=== PATIENT | male | born 1955 | race Two or more races ===

== ENCOUNTER 2018-07-23 23:28 | Inpatient (IN) | payer MEDICARE, MEDICAID ==
[~2018-07-23] VITALS: Ht 162.6 cm; Wt 86.2 kg
--- NOTE | 2018-07-23 23:35 | NUR ---
PT BIBRA FROM HOME COMPLAINING OF ANXIETY X1HOUR SYSTEMS CONSULTANT. PER RA, BP WAS 88/60 AND O2 RA 93%. PT RECEIVED 100CC NS IV LEFT HAND 18G AND 2L NC EN ROUTE. PT IS AAOX3. SKIN WARM AND INTACT. NO ACUTE DISTRESS NOTED AT THIS TIME. PT PLACED ON CONTINUOUS DONOR TECHNICIAN, WILL CONTINUE TO MONITOR.
--- NOTE | 2018-07-23 23:36 | NUR ---
MD AT BEDSIDE FOR EVALUATION
--- NOTE | 2018-07-23 23:43 | NUR ---
HOG COUNTER AT BEDSIDE FOR BLOOD DRAW
--- NOTE | 2018-07-23 23:45 | NUR ---
URINE COLLECTED AND PICKED UP BY LAB
--- NOTE | 2018-07-23 23:50 | NUR ---
RADIOLOGIST AT BEDSIDE FOR CXR
[2018-07-23 23:53] LABS: BASOPHILS # (AUTO) 0.1 /CMM (0.0-0.2); BASOPHILS % (AUTO) 1.6 % (0.0-2.0); EOSINOPHILS % (AUTO) 5.1 % (0.0-6.0); HEMATOCRIT 29 % (39-51); LYMPHOCYTES # (AUTO) 0.5 /CMM (0.8-4.8); LYMPHOCYTES % (AUTO) 8.6 % (20.0-44.0); MEAN CORPUSCULAR HGB CONC 31 g/dl (31.0-36.0); MEAN CORPUSCULAR VOLUME 89 fL (80-96); MONOCYTES # (AUTO) 0.8 /CMM (0.1-1.30); NEUTROPHILS # (AUTO) 4.6 /CMM (1.8-8.9); NEUTROPHILS % (AUTO) 72.7 % (43.0-81.0); PLATELET COUNT (AUTO) 83 /CMM (150-450); RED BLOOD CELL COUNT(AUTO) 3.25 MIL/uL (4.5-6.0); WHITE BLOOD COUNT (AUTO) 6.3 K/uL (4.3-11.0)
[2018-07-24] VITALS (7 sets, daily range): BP systolic 95–104; BP diastolic 49–75
[2018-07-24 00:06] LABS: CALCIUM, SERUM 8.2 mg/dL (8.5-10.1); CARBON DIOXIDE 26 mmol/L (21-32); CHLORIDE 99 mmol/L (98-107); CREATININE 4.7 mg/dL (0.6-1.3); GLUCOSE 151 mg/dL (74-106); POTASSIUM 4.2 mmol/L (3.5-5.1); SODIUM SERUM 136 mmol/L (136-145); UREA NITROGEN, BLOOD 31 mg/dL (7-18)
[2018-07-24 00:09] LABS: APPEARANCE,URINE SL CLOUDY (CLEAR); BILIRUBIN,URINE 2+ (NEGATIVE); BLOOD, URINE NEGATIVE Ery/uL (NEGATIVE); COLOR,URINE DARK YELLO (YELLOW); KETONES,URINE 1+ (NEGATIVE); LEUKOCYTE ESTERASE ,URINE 1+ (NEGATIVE); NITRITE, URINE NEGATIVE (NEGATIVE); PROTEIN,URINE 2+ mg/dl (NEGATIVE); UGLUCOSE NEGATIVE (NEGATIVE); UROBILINOGEN,URINE 0.2 EU/dL (0.2)
[2018-07-24 00:18] LABS: ALANINE AMINOTRANSFERASE 353 U/L (12-78); ALBUMIN 3.3 g/dL (3.4-5.0); ALCOHOL, BLOOD < 3 mg/dL (0-0); ALKALINE PHOSPHATASE 142 U/L (46-116); ASPARTATE AMINOTRANSFERASE 200 U/L (15-37); B-TYPE NATRIURETIC PEPTIDE 9622 PG/ML (0-125); BILIRUBIN,DIRECT 0.5 mg/dL (0.0-0.2); BILIRUBIN,TOTAL 1.2 mg/dL (0.2-1.0); TOTAL PROTEIN, SERUM 6.8 g/dL (6.4-8.2)
[2018-07-24 00:19] LABS: ACETAMINOPHEN 0 ug/ml (10-30); SALICYLATE < 0.2 mg/dL (2.8-20.0)
[2018-07-24 00:21] LABS: BACTERIA,URINE Few /HPF (None Seen); SQUAMOUS EPITHELIAL CELL,UR Few /HPF (None Seen)
[2018-07-24 00:22] LABS: HYALINE CASTS, URINE Moderate /LPF (None Seen); MUCUS,URINE Few /LPF (None Seen); URINE AMORPHOUS URATE Few /HPF (None Seen)
[2018-07-24] MEDS ORDERED: CEFTRIAXONE 1GM BAG (ER ONLY) 50 ML IV ONE (00:28)
[2018-07-24] MEDS ORDERED: CEFTRIAXONE 1GM BAG (ER ONLY) 1 GM/50 ML PIGGYBACK IV ONE (00:30)
[2018-07-24 01:12] LABS: EOSINOPHILS % (MANUAL) 4 % (0-4); LYMPHOCYTES % (MANUAL) 9 % (16-48); MONOCYTES % (MANUAL) 11 % (0-11.0); NEUTROPHILS % (MANUAL) 76 (42-76)
[2018-07-24] MEDS ORDERED: NITROGLYCERIN 0.4 MG/TAB BOTTLE SL PRN (01:30)
--- NOTE | 2018-07-24 01:36 | NUR ---
GAVE REPORT TO YUNIER TEJEDA FOR DARREN
--- NOTE | 2018-07-24 01:54 | NUR ---
TRANSFERRED PT PER ACLS PROTOCOL
--- NOTE | 2018-07-24 01:55 | NUR ---
TRAIN STARTERMAINTENANCE CRAFTSMAN NOTES Patient came to unit via russrabbi. Alert, oriented x 4, slovak speaking, understands and speaks a little bit of bulgarian, CASSY Pacheco present to translate. Patient on O2 at 2L via NC. Patient is short of breath on exertion. Denies any chest pain and nausea. IV site on L hand g#18, intact and patent, no signs of swelling or infiltration, S/L. 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 Patient reports having a pacemaker. Patient has HD catheter on upper R chest wall. He stated that he has hemodialysis 4/week (M,W,,F) at [facility] [place] on [address]. As per patient, he has had flu vaccine and pnemo vac Jun, 2018. Patient also reports using a CPAP at home when he sleeps, with the settings of 17. HOP STRAINER Rupa made aware and asked if an order can be made as per patient's request. As per FELIBERTO Goode, patient needs to be evaluated by a bleach liquor maker in the morning as it's not hospital policy to allow outside CPAP machine. DANDRE Curry aware. Patient informed and patient verbalized understanding. Skin assessment done. Patient has multiple discolorations and scabs on upper and lower extremities. As per patient, the ones on his arms are from the IV insertion. He said that he was admitted in [facility] last week for SOB. Pictures attached to chart. Patient states that he is currently taking medications but does not have a copy and does not remember all the names, dose and frequency of the medications that he is taking. Will have to let daughterMo take the list to the hospital or call her for the list. Contact number: [phone]. Patient oriented to call riya, placed within reach. Bed in low, locked position. Will continue to monitor accordingly.
[2018-07-24] MEDS ORDERED: DEXTROSE 50%-WATER 50 ML DISP.SYRIN IV PRN (03:00)
--- NOTE | 2018-07-24 06:15 | NUR ---
MECHANICAL MAINTENANCE ENGINEER NOTES BSL checked- 68mg/dL. [place] juice given. Will monitor and recheck blood sugar.
--- NOTE | 2018-07-24 06:32 | NUR ---
TMH TEACHER NOTES Called daughterMo and asked her to bring a list of patient's medication. Patient's daughter stated she will bring it in today
[2018-07-24] MEDS: BLOOD SUGAR DIAGNOSTIC 1 EACH STRIP IN SCH ×4 (06:42→22:13)
[2018-07-24] MEDS: INSULIN REGULAR, HUMAN 100 UNIT/ML 3 ML VIAL SQ PRN ×4 (06:43→22:15)
--- NOTE | 2018-07-24 06:47 | NUR ---
CORDWOOD CUTTER HELPER CLOSING NOTES Patient sleeping in bed. On O2 at 2Lpm via NC. Not in any distress. No complaints of pain as of this time. BSL rechecked after orange juice given, 88mg/dL. Tele monitor in place, SR 63 with 1st degree AV block and V-pacing. Call ritter within reach. Bed in low, locked position. Will endorse DARREN to oncoming RN.
[2018-07-24] MEDS: CEPHALEXIN MONOHYDRATE 500 MG CAPSULE PO SCH ×2 (08:37→18:09)
[2018-07-24] MEDS: FUROSEMIDE 40 MG/4 ML VIAL IV SCH ×2 (08:39→18:09)
--- NOTE | 2018-07-24 08:40 | NUR ---
ENGINEER EXHAUSTER INITIAL NOTES Patient is awake, sitting up in the bed. Had breakfast with fair appetite. Sinus rhythm V Pacing in the monitor, oxygen sat 99% on 2L/min via NC. HD cath in right chest wall, dressing in place, no bleeding noted. On fluid restriction, patient is aware. Will cont to monitor.
[2018-07-24] MEDS ORDERED: ENOXAPARIN SODIUM 40 MG/0.4 ML DISP.SYRIN SQ SCH (09:00)
[2018-07-24 10:22] LABS: BASOPHILS # (AUTO) 0.1 /CMM (0.0-0.2); BASOPHILS % (AUTO) 1.1 % (0.0-2.0); EOSINOPHILS % (AUTO) 4.6 % (0.0-6.0); HEMATOCRIT 29 % (39-51); HEMOGLOBIN 9.2 g/dL (13.5-17.5); LYMPHOCYTES # (AUTO) 0.6 /CMM (0.8-4.8); LYMPHOCYTES % (AUTO) 8.2 % (20.0-44.0); MEAN CORPUSCULAR HGB CONC 32 g/dl (31.0-36.0); MEAN CORPUSCULAR VOLUME 88 fL (80-96); MONOCYTES # (AUTO) 0.7 /CMM (0.1-1.30); MONOCYTES % (AUTO) 10.1 % (2.0-12.0); NEUTROPHILS # (AUTO) 5.6 /CMM (1.8-8.9); PLATELET COUNT (AUTO) 83 /CMM (150-450); RED BLOOD CELL COUNT(AUTO) 3.28 MIL/uL (4.5-6.0); WHITE BLOOD COUNT (AUTO) 7.3 K/uL (4.3-11.0)
[2018-07-24 10:34] LABS: CALCIUM, SERUM 8.5 mg/dL (8.5-10.1)
[2018-07-24 10:37] LABS: ALBUMIN 3.3 g/dL (3.4-5.0); BILIRUBIN,TOTAL 1.1 mg/dL (0.2-1.0); TOTAL PROTEIN, SERUM 6.7 g/dL (6.4-8.2)
[2018-07-24 10:38] LABS: EOSINOPHILS % (MANUAL) 5 % (0-4); LYMPHOCYTES % (MANUAL) 3 % (16-48); MONOCYTES % (MANUAL) 7 % (0-11.0); NEUTROPHILS % (MANUAL) 85 (42-76)
[2018-07-24 11:41] LABS: FERRITIN 159 ng/mL (8-388)
[2018-07-24 12:28] LABS: IRON, SERUM 28 ug/dl (50-175); TOTAL IRON BINDING CAPACITY 250 ug/dl (250-450)
[2018-07-24] MEDS: FERROUS SULFATE (325 MG) 325 MG/TAB TABLET PO SCH ×2 (13:20→18:09)
[2018-07-24] MEDS: PANTOPRAZOLE 40 MG TABLET.DR PO SCH (13:20)
[2018-07-24] MEDS: HEPARIN SODIUM, PORCINE 5000 UNITS/1 ML VIAL SQ SCH ×2 (13:24→21:00)
--- NOTE | 2018-07-24 15:14 | NUR ---
UNABLE TO UPDATE MED RECON AT THIS TIME. PATIENT UNABLE TO PROVIDE INFORMATION RE: HOME MEDICATION, PHARMACY OR PCP. CALLED MARK-DAUGHTER WAITING FOR CALL BACK. PRIMARY NURSE AWARE.
--- NOTE | 2018-07-24 18:18 | NUR ---
MS RN CLOSING NOTES Patient is on 1L/day fluid restriction, had HD today, 3L fluid output, tolerating well, Accu check ACHS with insulin sliding scale, PM dose 2 units insulin regular non administered-patient prefers not to eat at this time. CPAP may use for napping and at bedtime sleep per pulmo. Home medication pending, unable to reach family to provide list of home medication. MD is aware. Will endorse to oncoming RN.
--- NOTE | 2018-07-24 19:35 | NUR ---
RN INITIAL NOTES: RECEIVED REPORT FROM THONG TEJEDA, PT S/P HD TODAY WITH 3L OUTPUT. PT RESTING IN BED, A/O X3 KOREAN SPEAKING ONLY, WITH ORDERS TO OKAY TO USE OWN CPAP/BIPAP PER PULMO DURING NAPPING AND SLEEPING. LEFT CW PACEMAKER NOTED, RCW HD CATHETER IN PLACED DRESSING C/D/I, NO ACTIVE BLEEDING NOTED. IV ACCESS PATENT AND FLUSHING WELL, ON HL. NO S/S OF INFILTRATION NOTED. SAFETY PRECAUTIONS FOR FALL INITIATED, CALL LIGHT IN REACH, WILL CONTINUE MONITORING PT.
--- NOTE | 2018-07-24 21:18 | NUR ---
NON ADMIN OF HEPARIN: HEPARIN SCHEDULED FOR 2100, NOT ADMINISTERED AT THIS TIME, PT RECEIVED IT TODAY 07/24/18 AT 1324
--- NOTE | 2018-07-24 22:16 | NUR ---
ACCU CHECK 144: BLOOD SUGAR CHECK PERFORMED RESULT OBTAINED IS 144, 2UNITS OF INSULIN GIVEN PER SLIDING SCALE, WILL CONTINUE TO MONITOR FOR ANY S/S OF HYPOGLYCEMIA
[2018-07-25] MEDS: BLOOD SUGAR DIAGNOSTIC 1 EACH STRIP IN SCH ×4 (06:16→21:50)
[2018-07-25] MEDS: INSULIN REGULAR, HUMAN 100 UNIT/ML 3 ML VIAL SQ PRN ×3 (06:17→17:28)
--- NOTE | 2018-07-25 06:18 | NUR ---
ACCU CHECK 116: BLOOD SUGAR CHECK PERFORMED AND OBAIN RESULT OF 116, NO INSULIN GIVEN PER SLIDING SCALE.
--- NOTE | 2018-07-25 06:43 | NUR ---
rn closing notes: pt in bed, sleeping, arouses to tactile stimuli, remains on cpap, respiration even and unlabored. iv access remains patent and flushing well, on hl. vs remains stable, needs attended. will f/u regarding pt's home med list. safety precautions for fall remains engaged, call light in reach, will endorse to day rn for continuity of care.
[2018-07-25 06:59] LABS: BASOPHILS # (AUTO) 0.1 /CMM (0.0-0.2); BASOPHILS % (AUTO) 1.4 % (0.0-2.0); EOSINOPHILS % (AUTO) 7.5 % (0.0-6.0); HEMATOCRIT 30 % (39-51); HEMOGLOBIN 9.5 g/dL (13.5-17.5); LYMPHOCYTES # (AUTO) 0.7 /CMM (0.8-4.8); MEAN CORPUSCULAR HGB CONC 32 g/dl (31.0-36.0); MEAN CORPUSCULAR VOLUME 88 fL (80-96); MONOCYTES # (AUTO) 0.7 /CMM (0.1-1.30); MONOCYTES % (AUTO) 11.8 % (2.0-12.0); NEUTROPHILS % (AUTO) 67.3 % (43.0-81.0); PLATELET COUNT (AUTO) 89 /CMM (150-450); RED BLOOD CELL COUNT(AUTO) 3.44 MIL/uL (4.5-6.0)
[2018-07-25 07:05] LABS: ALBUMIN 3.2 g/dL (3.4-5.0); BILIRUBIN,TOTAL 1.1 mg/dL (0.2-1.0); CALCIUM, SERUM 8.7 mg/dL (8.5-10.1); CREATININE 5.4 mg/dL (0.6-1.3); PHOSPHORUS 4.8 mg/dL (2.5-4.9); POTASSIUM 4.4 mmol/L (3.5-5.1); TOTAL PROTEIN, SERUM 6.7 g/dL (6.4-8.2)
[2018-07-25 07:10] LABS: THYROID STIMULATING HORMONE 1.052 uIU/mL (0.358-3.74)
--- NOTE | 2018-07-25 07:42 | NUR ---
MS/RN OPENING NOTE PATIENT IN BED IN STABLE CONDITION. A/O X 3, ICELANDIC SPEAKING. NO SIGNS OF ACUTE DISTRESS. NO COMPLAIN OF PAIN OR DISCOMFORT. ON OXYGEN 2LPM VIA NC TOLERATING WELL. ORDER TO USE CPAP DURING NIGHT TIME AND WHILE TAKING NAPS. ALL NEEDS ATTENDED TO. CALL LIGHT WITHIN REACH. WILL CONTINUE TO MONITOR TO ENSURE SAFETY.
[2018-07-25 08:00] VITALS: BP 90/58
[2018-07-25 08:11] LABS: *SPE A/G RATIO 1.4 (0.7-1.7); *SPE ALBUMIN 3.7 g/dL (2.9-4.4); *SPE ALPHA-1-GLOBULIN 0.3 g/dL (0.0-0.4); *SPE ALPHA-2-GLOBULIN 0.5 g/dL (0.4-1.0); *SPE BETA GLOBULIN 0.8 g/dL (0.7-1.3); *SPE GLOBULIN, TOTAL 2.7 g/dL (2.2-3.9); *SPE M-SPIKE Not Observed g/dL (Not Observed); *SPEGAMMA GLOBULIN 1.2 g/dL (0.4-1.8)
[2018-07-25] MEDS ORDERED: NITR0.4T48 SL (08:23)
[2018-07-25] MEDS ORDERED: SEVE0.8P PO (08:23)
[2018-07-25] MEDS ORDERED: TRAZ-213 PO (08:23)
[2018-07-25] MEDS ORDERED: NPH,100V2 SQ (08:23)
[2018-07-25] MEDS ORDERED: CARV3.122 PO (08:23)
[2018-07-25] MEDS ORDERED: INSU100V9 SQ (08:23)
[2018-07-25] MEDS ORDERED: AMIO200T4 PO (08:23)
[2018-07-25] MEDS: HEPARIN SODIUM, PORCINE 5000 UNITS/1 ML VIAL SQ SCH ×2 (08:30→21:00)
--- NOTE | 2018-07-25 08:31 | NUR ---
MS/RN HEPARIN SQ HELD SECONDARY TO PLATELETS 89L. DR SIMMS AWARE AND AGREED.
[2018-07-25] MEDS: FUROSEMIDE 40 MG/4 ML VIAL IV SCH (08:39)
--- NOTE | 2018-07-25 08:40 | NUR ---
MS/RN LASIX 40MG IV PUSH HELD SECONDARY TO LOW BP, DR PAIZ MADE AWARE AND AGREED.
[2018-07-25] MEDS: CEPHALEXIN MONOHYDRATE 500 MG CAPSULE PO SCH ×2 (08:41→16:33)
[2018-07-25] MEDS: FERROUS SULFATE (325 MG) 325 MG/TAB TABLET PO SCH (08:41)
[2018-07-25] MEDS: PANTOPRAZOLE 40 MG TABLET.DR PO SCH (08:41)
[2018-07-25 09:59] LABS: BAND % (MANUAL) 1 % (0.0-5.0); EOSINOPHILS % (MANUAL) 5 % (0-4); LYMPHOCYTES % (MANUAL) 15 % (16-48); MONOCYTES % (MANUAL) 6 % (0-11.0); NEUTROPHILS % (MANUAL) 73 (42-76)
--- NOTE | 2018-07-25 10:40 | NUR ---
WOUND CARE CONSULT: PT ON DIALYSIS AT THIS TIME. PT IS INDEPENDENT WITH BED MOBILITY, AMBULATORY AND CONTINENT. MULTIPLE AREAS OF SKIN DISCOLORATION/UNEVEN PIGMENTATION NOTED IN ADMISSION PHOTOS. WILL SEE PRN.
--- NOTE | 2018-07-25 11:00 | NUR ---
MS/RN CALLED DAUGHTER TO VERIFY PATIENT'S MEDICATION. NO RESPONSE AND LEFT MESSAGE. MED RECON STILL PENDING SINCE PATIENT HAVE NOT ENOUGH INFO REGARDING HIS MEDICATION.
--- NOTE | 2018-07-25 15:00 | NUR ---
MS/RN CALLED PHARMACY AND MADE AWARE PATIENT FERLICIT WAS DUE AT 2PM AND STILL NOT DELIVERED. PER PHARM WILL PREP IT AND SEND IT UP
[2018-07-25 16:00] VITALS: BP 123/73
--- NOTE | 2018-07-25 16:00 | NUR ---
MS/RN SPOKE WITH ANNEMARIE RUSS AND MADE AWARE STILL NO FERLICIT DELIVER PER ANNEMARIE, "THERE IS NOT TECH AT THIS TIME, ONCE THE TECH COMES SHE WILL ASK THEM TO PREP IT AND DELIVER."
[2018-07-25] MEDS: SOD FERRIC GLUC 125 MG in IV NS 0.9% 100 ML IV SCH (16:16)
--- NOTE | 2018-07-25 18:38 | NUR ---
MS/RN CLOSING NOTE PATIENT IN BED IN STABLE CONDITION. A/O X 4. NO SIGNS OF ACUTE DISTRESS. NO COMPLAIN OF PAIN OR DISCOMFORT. ON OXYGEN 2LPM VIA NC TOLERATING WELL. S/P H/D TODAY 200ML FLUID REMOVED. ALL NEEDS ATTENDED TO. CALL LIGHT WITHIN REACH. WILL ENDORSE TO NEXT SHIFT FOR CONTINUITY OF CARE.
--- NOTE | 2018-07-25 19:25 | NUR ---
MS RN OPENING NOTES: RECEIVED REPORT FROM DEN TEJEDA, PT S/P HD TODAY WITH 200ML OUTPUT. PT RESTING IN BED, A/O X3 ARMENIAN SPEAKING WITH MINIMAL MONGOLIAN SPEAKING, WITH ORDERS TO OKAY TO USE OWN CPAP/BIPAP PER PULMO DURING NAPPING AND SLEEPING. LEFT CW PACEMAKER NOTED, RCW HD CATHETER IN PLACED DRESSING C/D/I, NO ACTIVE BLEEDING NOTED. IV ACCESS TO LEFT HAND,SL, INTACT PATENT. NO S/S OF INFILTRATION NOTED. AMBULATORY/STEADY. BED IN LOW LOCKED POSITION. SAFETY PRECAUTIONS IN PLACE. CALL LIGHT IN REACH, WILL CONTINUE MONITORING PT CLOSELY FOR ANY DARREN.
[2018-07-25 20:00] VITALS: BP 77/62
[2018-07-25 20:40] VITALS: BP 98/62
--- NOTE | 2018-07-25 21:51 | NUR ---
NON ADMIN OF HEPARIN DOSE: HEPARIN SCHEDULED FOR 2100, NOT ADMINISTERED AT THIS TIME, PER MD, HOLD HEPARIN DOSE TONIGHT DUE TO PLATELETS BEING LOW 89. WILL MONITOR CLOSELY.
[2018-07-26 00:57] VITALS: BP 90/59
--- NOTE | 2018-07-26 00:59 | NUR ---
MS RN NOTE PATIENT'S BP NOTED TO BE 90/59, 73, 22, 98 F, 100%, 0/10. NO DIZZINESS, NO OTHER SYMPTOMS VERBALIZED. WILL CONTINUE TO MONITOR FOR ANY DARREN.
--- NOTE | 2018-07-26 03:02 | NUR ---
MS RN NOTE INFORMED FELIBERTO SMILEY THAT PATIENT'S SBP HAS BEEN AT LOWER SIDE IN 90'S, PT IS ON HD DAILY PER NEPHROLOGY, HAS CHF, ON FLUID RESTRICTIONS. SHERICE ADVISED TO MONITOR THE PATIENT CLOSELY WITH NO NEW ORDERS AT THIS TIME, ALSO STATED THAT ITS UP TO NEPHROLOGY IF MIDODRINE COULD BE PRESCRIBED IN AM. WILL ENDORSE TO AM RN TO F/U WITH NEPHROLOGY IN AM. PT IS NOT VERBALIZING ANY SYMPTOMS AT THIS TIME. SLEEPING INTERMITTENTLY WITH CPAP ON ORDERED.
[2018-07-26] MEDS: BLOOD SUGAR DIAGNOSTIC 1 EACH STRIP IN SCH ×4 (06:32→21:27)
--- NOTE | 2018-07-26 06:37 | NUR ---
MS RN CLOSING NOTE PATIENT SLEPT WELL AT NIGHT. IN STABLE CONDITION. A/O X 4. NO SIGNS OF ACUTE DISTRESS. NO COMPLAIN OF PAIN OR DISCOMFORT. ON OXYGEN 2LPM VIA NC TOLERATING WELL. WILL HAVE HD DAILY PER DR. NAVARRETE ORDER. ON FLUID RESTRICTIONS 1 LITER/DAY PER DR. SIMMS. CPAP WAS USED BY THE PT WHILE ASLEEP. ALL NEEDS ATTENDED TO. BED IN LOW LOCKED POSITION. CALL LIGHT WITHIN REACH. WILL ENDORSE TO NEXT SHIFT FOR CONTINUITY OF CARE.
--- NOTE | 2018-07-26 07:40 | NUR ---
MS/RN OPENING NOTE PATIENT IN BED IN STABLE CONDITION. A/O X 3. NO SIGNS OF ACUTE DISTRESS. NO COMPLAIN OF PAIN OR DISCOMFORT. ON OXYGEN 2LPM VIA NC TOLERATING WELL. ALL NEEDS ATTENDED TO. CALL LIGHT WITHIN REACH. WILL CONTINUE TO MONITOR TO ENSURE SAFETY.
[2018-07-26 07:46] LABS: BASOPHILS # (AUTO) 0.1 /CMM (0.0-0.2); BASOPHILS % (AUTO) 1.3 % (0.0-2.0); EOSINOPHILS % (AUTO) 8.7 % (0.0-6.0); HEMATOCRIT 29 % (39-51); HEMOGLOBIN 9.2 g/dL (13.5-17.5); LYMPHOCYTES # (AUTO) 0.9 /CMM (0.8-4.8); LYMPHOCYTES % (AUTO) 18.2 % (20.0-44.0); MEAN CORPUSCULAR HGB CONC 32 g/dl (31.0-36.0); MEAN CORPUSCULAR VOLUME 87 fL (80-96); MONOCYTES # (AUTO) 0.6 /CMM (0.1-1.30); MONOCYTES % (AUTO) 13.3 % (2.0-12.0); NEUTROPHILS # (AUTO) 2.8 /CMM (1.8-8.9); NEUTROPHILS % (AUTO) 58.5 % (43.0-81.0); PLATELET COUNT (AUTO) 89 /CMM (150-450); RED BLOOD CELL COUNT(AUTO) 3.34 MIL/uL (4.5-6.0); WHITE BLOOD COUNT (AUTO) 4.8 K/uL (4.3-11.0)
[2018-07-26 08:00] VITALS: BP 113/74
[2018-07-26 08:09] LABS: CALCIUM, SERUM 8.6 mg/dL (8.5-10.1); CREATININE 4.4 mg/dL (0.6-1.3); MAGNESIUM 1.9 mg/dL (1.8-2.4); PHOSPHORUS 4.6 mg/dL (2.5-4.9); POTASSIUM 4.1 mmol/L (3.5-5.1)
[2018-07-26] MEDS: CEPHALEXIN MONOHYDRATE 500 MG CAPSULE PO SCH ×2 (08:27→16:42)
[2018-07-26] MEDS: HEPARIN SODIUM, PORCINE 5000 UNITS/1 ML VIAL SQ SCH ×2 (08:27→21:27)
[2018-07-26] MEDS: PANTOPRAZOLE 40 MG TABLET.DR PO SCH (08:27)
--- NOTE | 2018-07-26 08:28 | NUR ---
MS/RN HEPARIN SQ HELD SECONDARY PLATELETS 89L. AWARE.
[2018-07-26] MEDS: INSULIN REGULAR, HUMAN 100 UNIT/ML 3 ML VIAL SQ PRN ×2 (12:00→17:39)
--- NOTE | 2018-07-26 12:40 | NUR ---
MS/RN SPOKE WITH [facility] DIALYSIS NURSE REGARDING PATIENT SCHEDULE FOR DIALYSIS. PER [facility] PATIENT IS SCHEDULE TO HAVE DIALYSIS TODAY BUT MOST LIKELY WILL HAPPEN AFTER 7PM. PATIENT MADE AWARE.
[2018-07-26] MEDS: SOD FERRIC GLUC 125 MG in IV NS 0.9% 100 ML IV SCH (13:48)
[2018-07-26 16:00] VITALS: BP 89/58
[2018-07-26 16:38] VITALS: BP 96/63
--- NOTE | 2018-07-26 18:20 | NUR ---
MS/RN CLOSING NOTE PATIENT IN BED IN STABLE CONDITION. A/O X 4. NO SIGNS OF ACUTE DISTRESS. NO COMPLAIN OF PAIN OR DISCOMFORT. ALL NEEDS ATTENDED TO. CALL LIGHT WITHIN REACH. WILL ENDORSE TO NEXT SHIFT FOR CONTINUITY OF CARE.
[2018-07-26 20:00] VITALS: BP 96/71
--- NOTE | 2018-07-26 20:03 | NUR ---
hemodialysis nurse in and talked to patient that the patient,s hemodialysis will be done after another patiernt and patient is aware
--- NOTE | 2018-07-26 21:50 | NUR ---
FELIBERTO Shaffer informed about the patient platelet level and patient on is on heparin dose and clarified the order, with orders okay to give the heparin with the presnt platelt level Addendum: 07/26/18 at 2200 by KOBY GUTIERREZ RN with xcomplaints of inability to sleep well and FELIBERTO Black paged for orders,/placed on bipap but patient requested to remove the bipapa and placed on nasal cannula and tolerating well
--- NOTE | 2018-07-26 22:52 | NUR ---
still awake and sitting in the adge of the bed.FELIBERTO Black in and will inform about the patient request for a sleeping m,edication.
[2018-07-26] MEDS ORDERED: diphenhydrAMINE HCL 25 MG CAPSULE PO PRN (23:30)
--- NOTE | 2018-07-27 02:51 | NUR ---
patient is currently on his bipap with home settings and is asleep/
--- NOTE | 2018-07-27 06:40 | NUR ---
hemodialysis ongoing and tolerating the procedure. blood sugar 105mg/dl
[2018-07-27] MEDS: BLOOD SUGAR DIAGNOSTIC 1 EACH STRIP IN SCH ×4 (06:41→21:43)
--- NOTE | 2018-07-27 07:07 | NUR ---
REPORT WILI TO THE DAY SHIFT RN TO CLARIFY THE HEPARIN DOSE WITH THROMBOCYTOPENIA PLT 8.9. WITH ORDERS FORM DR HAMILTON TO WILI THE HEPARIN DOSE WITH THE PLATELET LEVEL BUT THROMBOCYTOPIA CONTRAINDICATED FOR HEPARIN . MAY POSSIBLE HAVE ALTERNATE DVT PROPHYLAXIX
--- NOTE | 2018-07-27 07:14 | NUR ---
MS/RN Patient received Patient received from machinist 2nd shift. HDX just completed, no fluid removed, vital signs throughout treatment stable. Safety measures in place, will continue to monitor and ensure safety.
[2018-07-27 08:00] VITALS: BP 96/66
[2018-07-27] MEDS: HEPARIN SODIUM, PORCINE 5000 UNITS/1 ML VIAL SQ SCH ×2 (08:02→20:37)
[2018-07-27] MEDS: CEPHALEXIN MONOHYDRATE 500 MG CAPSULE PO SCH ×2 (08:05→17:17)
[2018-07-27] MEDS: PANTOPRAZOLE 40 MG TABLET.DR PO SCH (08:05)
[2018-07-27 08:15] VITALS: BP 96/66
[2018-07-27 09:06] LABS: EOSINOPHILS % (AUTO) 5.6 % (0.0-6.0); HEMATOCRIT 30 % (39-51); HEMOGLOBIN 9.3 g/dL (13.5-17.5); LYMPHOCYTES # (AUTO) 0.9 /CMM (0.8-4.8); LYMPHOCYTES % (AUTO) 17.3 % (20.0-44.0); MEAN CORPUSCULAR HGB CONC 31 g/dl (31.0-36.0); MEAN CORPUSCULAR VOLUME 88 fL (80-96); MONOCYTES # (AUTO) 0.6 /CMM (0.1-1.30); MONOCYTES % (AUTO) 12.3 % (2.0-12.0); NEUTROPHILS # (AUTO) 3.3 /CMM (1.8-8.9); NEUTROPHILS % (AUTO) 63.8 % (43.0-81.0); PLATELET COUNT (AUTO) 95 /CMM (150-450); RED BLOOD CELL COUNT(AUTO) 3.38 MIL/uL (4.5-6.0); WHITE BLOOD COUNT (AUTO) 5.2 K/uL (4.3-11.0)
[2018-07-27 09:18] LABS: CALCIUM, SERUM 8.7 mg/dL (8.5-10.1); CREATININE 3.6 mg/dL (0.6-1.3); MAGNESIUM 1.7 mg/dL (1.8-2.4); PHOSPHORUS 3.6 mg/dL (2.5-4.9); POTASSIUM 3.7 mmol/L (3.5-5.1)
[2018-07-27 09:58] LABS: EOSINOPHILS % (MANUAL) 6 % (0-4); LYMPHOCYTES % (MANUAL) 17 % (16-48); MONOCYTES % (MANUAL) 13 % (0-11.0); NEUTROPHILS % (MANUAL) 64 (42-76)
[2018-07-27] MEDS: FLUOXETINE HCL 20 MG CAPSULE PO SCH (11:50)
--- NOTE | 2018-07-27 12:00 | NUR ---
MS/RN Blood sugar Blood sugar at noon 149, insulin coverage not administered as patient stating that he is not going to eat.
--- NOTE | 2018-07-27 12:16 | NUR ---
MS/RN New order New order from Dr Patel for prozac 20mg daily. MD asked to reconcile home medications as not done since admission.
[2018-07-27] MEDS: ALPRAZOLAM 0.25 MG TABLET PO PRN ×2 (13:57→20:05)
--- NOTE | 2018-07-27 14:03 | NUR ---
MS/RN New order New order from Dr Patel for xanax 0.25mg every six hours prn for anxiety. First dose given now.
[2018-07-27] MEDS: SOD FERRIC GLUC 125 MG in IV NS 0.9% 100 ML IV SCH (14:27)
--- NOTE | 2018-07-27 15:21 | NUR ---
MS/RN Ferrlecit Ferrlecit administered as ordered, H&H 9.11/08
[2018-07-27 16:00] VITALS: BP 96/72
[2018-07-27] MEDS: INSULIN REGULAR, HUMAN 100 UNIT/ML 3 ML VIAL SQ PRN (17:18)
--- NOTE | 2018-07-27 17:25 | NUR ---
MS/managing member eval request Patient requesting that when ready for discharge to be sent to a psychiatric facility to "deal with my anxiety". Relaid to patient that MD would be notified.
--- NOTE | 2018-07-27 18:10 | NUR ---
MS/RN End note Patient remains in stable condition. Continues to deny any pain or discomfort, does not appears short of breath. Staying within fluid restriction of 1l. All needs addressed, will endorse to shift production associate.
--- NOTE | 2018-07-27 19:15 | NUR ---
RN OPENING NOTES PT RECEIVED IN ROOM, SITTING UP ON A CHAIR AT BEDSIDE. PT NOTED TO BE ANXIOUS AND CONFIRMS FEELING ANXIOUS. NO SOB NOTED, INFORMED PT THAT XANAX WILL BE ADMINISTERED ORDERED AND PT. VERBALIZED UNDERSTANDING. PT PERFORMING RELAXATION VIA DEEP BREATHING EXERCISES WITH HELP. PLACED CALL LIGHT WITHIN EASY REACH. WILL CONTINUE TO MONITOR PT.
[2018-07-27 19:52] VITALS: BP 94/68
[2018-07-27] MEDS ORDERED: ACETAMINOPHEN 325 MG TABLET PO PRN (21:00)
--- NOTE | 2018-07-27 21:00 | NUR ---
RN NOTES PATIENT WITH C/O BILATERAL LOWER EXTREMITY MUSCLE CRAMPING AND HEADACHE, PT DENIES CHEST PAIN, NO C/O WEAKNESS AND NO DIZZINESS, NO SOB. RELAYED TO FELIBERTO HAMILTON. FORECLOSURE SPECIALIST WITH NEW ORDER FOR TYLENOL. ENCOURAGED PT TO AMBULATE TO HELP WITH CRAMPING. PT COMPLIANT. WILL CONTINUE TO MONITOR.
[2018-07-27] MEDS: TRAZODONE 50 MG TABLET PO SCH (21:06)
--- NOTE | 2018-07-28 06:50 | NUR ---
RN CLOSING NOTES PATIENT IS ALERT AND ORIENTED X 4, SLEPT INTERMITTENTLY DURING THIS SHIFT. COMPLIANT WITH USE OF BIPAP. ALL PATIENT'S NEEDS ATTENDED TO. ENCOURAGED TO AMBULATE TO RELIEVE MUSCLE CRAMPS. COMPLIANT AND WITH HELP. ALL PATIENT'S NEEDS ATTENDED TO, CALL LIGHT WITHIN REACH. WILL ENDORSE TO AM SHIFT NURSE FOR CONTINUITY OF CARE.
--- NOTE | 2018-07-28 07:15 | NUR ---
MS ILEANA OPENING NOTE RECEIVED PATIENT IN BED. ALERT ORIENTED X2-3. ON ROOM AIR, TOLERATING WELL. IN NO APPARENT DISTRESS OR DISCOMFORT AT THIS TIME. RESPIRATIONS EVEN AND UNLABORED. DENIES PAIN AND SOB. PATIENT IS ABLE TO COMMUNICATE NEEDS. IS INCONTINENT WITH USE OF DIAPER. RIGHT FOREARM 22G IVC WITH FLUIDS RUNNING AT 50ML/HR. PATIENTS EXTREMITIES ELEVATED AT THIS TIME. PER PILL MACHINE OPERATOR RN PATIENT HAS BEEN HAVING DECREASED BP IN 90S/50'S. PATIENT KEPT CLEAN AND COMFORTABLE. ALL NEEDS ATTENDED, SAFETY MEASURE IN PLACE, BED IN LOW LOCKED POSITION, SIDE RAILS UP X2, CALL LIGHT WITHIN EASY REACH. WILL CONTINUE TO MONITOR. Addendum: 07/28/18 at 0817 by LUIGI BAIRES RN NOTE IS FOR A DIFFERENT PATIENT.
--- NOTE | 2018-07-28 07:17 | NUR ---
MS RN OPENING NOTE RECEIVED PATIENT IN BED. SLEEPING, EASILY AROUSED WITH VERBAL STIMULI. ORIENTED X3. ON CPAP MACHINE SETTINGS PER ORDER, TOLERATING WELL. IN NO APPARENT DISTRESS OR DISCOMFORT AT THIS TIME. RESPIRATIONS EVEN AND UNLABORED. DENIES PAIN AND SOB. PATIENT IS ALBANIAN SPEAKING, ABLE TO COMMUNICATE NEEDS WITH A LITTLE ITALIAN. PATIENT WITH L HAND 18G IVC SL. LEFT CHEST WALL PACEMAKER, RIGHT CHEST WALL HD CATHETER, INTACT. PATIENT KEPT CLEAN AND COMFORTABLE. ALL NEEDS ATTENDED, SAFETY MEASURES IN PLACE, BED IN LOW LOCKED POSITION SIDE RAILS UP X2, CALL LIGHT WITHIN EASY REACH. WILL CONTINUE TO MONITOR.
[2018-07-28 07:26] LABS: BASOPHILS # (AUTO) 0.1 /CMM (0.0-0.2); BASOPHILS % (AUTO) 1.2 % (0.0-2.0); EOSINOPHILS % (AUTO) 6.4 % (0.0-6.0); HEMATOCRIT 29 % (39-51); HEMOGLOBIN 9.1 g/dL (13.5-17.5); LYMPHOCYTES # (AUTO) 0.8 /CMM (0.8-4.8); LYMPHOCYTES % (AUTO) 17.3 % (20.0-44.0); MEAN CORPUSCULAR HGB CONC 31 g/dl (31.0-36.0); MEAN CORPUSCULAR VOLUME 88 fL (80-96); MONOCYTES # (AUTO) 0.6 /CMM (0.1-1.30); MONOCYTES % (AUTO) 12.3 % (2.0-12.0); NEUTROPHILS # (AUTO) 3.1 /CMM (1.8-8.9); NEUTROPHILS % (AUTO) 62.8 % (43.0-81.0); PLATELET COUNT (AUTO) 97 /CMM (150-450); WHITE BLOOD COUNT (AUTO) 4.9 K/uL (4.3-11.0)
[2018-07-28] MEDS ORDERED: FLUO20CA36 PO (07:54)
[2018-07-28 07:57] LABS: CREATININE 4.5 mg/dL (0.6-1.3); MAGNESIUM 1.7 mg/dL (1.8-2.4); PHOSPHORUS 4.9 mg/dL (2.5-4.9); POTASSIUM 4.4 mmol/L (3.5-5.1)
[2018-07-28 08:08] VITALS: BP 108/81
[2018-07-28] MEDS ORDERED: INSULIN REGULAR, HUMAN 100 UNIT/ML 10 ML VIAL SQ SCH (09:00)
[2018-07-28] MEDS ORDERED: NITROGLYCERIN 0.4 MG/TAB BOTTLE SL PRN (09:00)
[2018-07-28] MEDS ORDERED: FLUOXETINE HCL 20 MG CAPSULE PO SCH (09:00)
[2018-07-28] MEDS: HEPARIN SODIUM, PORCINE 5000 UNITS/1 ML VIAL SQ SCH ×2 (09:00→21:46)
[2018-07-28] MEDS: AMIODARONE HCL 200 MG TABLET PO SCH (09:04)
[2018-07-28] MEDS: PANTOPRAZOLE 40 MG TABLET.DR PO SCH (09:04)
[2018-07-28] MEDS: CEPHALEXIN MONOHYDRATE 500 MG CAPSULE PO SCH (09:04)
[2018-07-28] MEDS: FLUOXETINE HCL 20 MG CAPSULE PO SCH (09:04)
[2018-07-28] MEDS: CARVEDILOL 3.125 MG TABLET PO SCH ×2 (09:04→17:00)
[2018-07-28] MEDS: BLOOD SUGAR DIAGNOSTIC 1 EACH STRIP IN SCH ×4 (09:05→22:09)
[2018-07-28] MEDS: SEVELAMER CARBONATE 800 MG TABLET PO SCH ×3 (09:10→17:21)
[2018-07-28 09:25] VITALS: BP 108/81
--- NOTE | 2018-07-28 10:55 | NUR ---
PATIENT REPORTS BEING DEPRESSED. CURRENTLY DENIES SUICIDAL IDEATIONS BUT SAYS HE WANTS TO GO TO PSYCHIATRIC FACILITY OTHERWISE IF HE GOES HOME SE WILL START HAVING SUICIDAL THOUGHTS AGAIN. ASKED THE PATIENT TO NOTIFY IF HE STARTS HAVING SUICIDAL THOUGHT. PATIENT AGREED. DR. SIMMS MADE AWARE. PSYCH CONSULT REQUESTED. CM AWARE. WILL CONTINUE TO MONITOR AT THIS TIME.
[2018-07-28] MEDS: INSULIN REGULAR, HUMAN 100 UNIT/ML 3 ML VIAL SQ PRN (13:18)
[2018-07-28] MEDS: SOD FERRIC GLUC 125 MG in IV NS 0.9% 100 ML IV SCH (14:44)
[2018-07-28 16:03] VITALS: BP 102/51
[2018-07-28] MEDS ORDERED: AZITHROMYCIN 500 MG in IV D5W 250 ML IV SCH (17:00)
--- NOTE | 2018-07-28 17:00 | NUR ---
LAURENT NURSE AT BEDSIDE. PATIENT IS BEING DIALYZED AT THIS TIME. WILL CONTINUE TO MONITOR. Addendum: 07/28/18 at 1831 by LUIGI BAIRES RN HD
[2018-07-28] MEDS: AMPICILLIN 1 GM in IV NS 0.9% 50 ML IV SCH (17:21)
--- NOTE | 2018-07-28 18:31 | NUR ---
MS RN CLOSING NOTE PATIENT IN BED. ALERT ORIENTED X4. ON ROOM AIR, TOLERATING WELL. IN NO APPARENT DISTRESS OR DISCOMFORT AT THIS TIME. RESPIRATIONS EVEN AND UNLABORED. DENIES PAIN AND SOB. PATIENT IS SIERRA LEONEAN SPEAKING, ABLE TO COMMUNICATE NEEDS WITH A LITTLE WOLOF. PATIENT WITH L FA 20G IVC SL. LEFT CHEST WALL PACEMAKER, RIGHT CHEST WALL HD CATHETER, INTACT AND PATENT. PATIENT DENIES SUICIDAL IDEATIONS AT THIS TIME. PATIENT KEPT CLEAN AND COMFORTABLE. ALL NEEDS ATTENDED, SAFETY MEASURES IN PLACE, BED IN LOW LOCKED POSITION SIDE RAILS UP X2, CALL LIGHT WITHIN EASY REACH. WILL ENDORSE TO PM NURSE FOR DARREN.
--- NOTE | 2018-07-28 19:20 | NUR ---
RN OPENING NOTES RECEIVED PT IN BED, ASLEEP BUT EASILY AROUSABLE, VERBALLY RESPONSIVE, IN NO ACUTE DISTRESS AND DENIES PAIN. ALL PATIENT'S NEEDS ATTENDED TO AT THIS TIME. PLACED BED IN LOW POSITION AND LOCKED IN PLACE. CALL LIGHT WITHIN EASY REACH.
[2018-07-28 20:00] VITALS: BP 102/69
[2018-07-28] MEDS: TRAZODONE 50 MG TABLET PO SCH (21:45)
[2018-07-28] MEDS ORDERED: TRAZODONE 50 MG TABLET PO SCH (22:00)
[2018-07-29] MEDS: AMPICILLIN 1 GM in IV NS 0.9% 50 ML IV SCH (05:14)
--- NOTE | 2018-07-29 06:28 | NUR ---
RN CLOSING NOTES PATIENT SLEPT WELL THROUGHOUT THIS SHIFT, COMPLIANT WITH USE OF BIPAP. NOTED WITH NO EPISODE OF ANXIETY. NO SOB, BREATHING EVEN AND UNLABORED AND IN NO DISTRESS. ALL PATIENT'S NEEDS ATTENDED TO, LOCKED BED IN LOW POSITION, PLACED CALL LIGHT WITHIN EASY REACH. WILL ENDORSE TO AM SHIFT NURSE FOR CONTINUITY OF CARE.
[2018-07-29] MEDS: BLOOD SUGAR DIAGNOSTIC 1 EACH STRIP IN SCH ×2 (07:07→11:59)
[2018-07-29 07:09] LABS: BASOPHILS # (AUTO) 0.1 /CMM (0.0-0.2); BASOPHILS % (AUTO) 1.3 % (0.0-2.0); EOSINOPHILS % (AUTO) 6.6 % (0.0-6.0); HEMATOCRIT 31 % (39-51); HEMOGLOBIN 9.6 g/dL (13.5-17.5); LYMPHOCYTES # (AUTO) 0.9 /CMM (0.8-4.8); LYMPHOCYTES % (AUTO) 18.7 % (20.0-44.0); MEAN CORPUSCULAR HGB CONC 31 g/dl (31.0-36.0); MEAN CORPUSCULAR VOLUME 89 fL (80-96); MONOCYTES # (AUTO) 0.6 /CMM (0.1-1.30); MONOCYTES % (AUTO) 11.3 % (2.0-12.0); NEUTROPHILS # (AUTO) 3.1 /CMM (1.8-8.9); NEUTROPHILS % (AUTO) 62.1 % (43.0-81.0); PLATELET COUNT (AUTO) 103 /CMM (150-450); RED BLOOD CELL COUNT(AUTO) 3.41 MIL/uL (4.5-6.0); WHITE BLOOD COUNT (AUTO) 5.1 K/uL (4.3-11.0)
--- NOTE | 2018-07-29 07:20 | NUR ---
MS RN OPENING NOTES RECEIVED PATIENT IN STABLE CONDITION. IN NO APPARENT DISTRESS. BEDSIDE RAILS ARE UPX2. BED IS LOCKED AND LOWERED. CALL LIGHT IS WITHIN REACH. IV LINE IS INTACT AND PATENT. WILL CONTINUE TO MONITOR PATIENT.
[2018-07-29 07:24] LABS: CREATININE 5.2 mg/dL (0.6-1.3); MAGNESIUM 1.9 mg/dL (1.8-2.4); POTASSIUM 4.7 mmol/L (3.5-5.1)
[2018-07-29 08:00] VITALS: BP 99/67
[2018-07-29] MEDS: PANTOPRAZOLE 40 MG TABLET.DR PO SCH (08:19)
[2018-07-29] MEDS: SEVELAMER CARBONATE 800 MG TABLET PO SCH ×2 (08:19→12:01)
[2018-07-29 08:20] VITALS: BP 99/67
[2018-07-29] MEDS: CARVEDILOL 3.125 MG TABLET PO SCH (08:20)
[2018-07-29] MEDS: AMIODARONE HCL 200 MG TABLET PO SCH (08:20)
[2018-07-29] MEDS: HEPARIN SODIUM, PORCINE 5000 UNITS/1 ML VIAL SQ SCH (08:25)
[2018-07-29] MEDS ORDERED: FLUO-119 PO (09:00)
[2018-07-29] MEDS ORDERED: Fluoxetine 10 mg capsule PO SCH (09:00)
[2018-07-29] MEDS: INSULIN REGULAR, HUMAN 100 UNIT/ML 3 ML VIAL SQ PRN (12:43)
--- NOTE | 2018-07-29 13:26 | NUR ---
MS TEJEDA CLOSING NOTES DISCHARGED PATIENT IN STABLE CONDITION. IN NO APPARENT DISTRESS. EXITCARE WAS SIGNED AND GIVEN TO THE PATIENT. IV LINE WAS REMOVED. ID BAND WAS REMOVED. PRESCRIPTIONS WERE PROVIDED TO THE PATIENT. ALL NEEDS WERE MET. PATIENT WAS ESCORTED OUT OF THE FACILITY VIA WHEELCHAIR BY CASSY JOHNSON. PATIENTS BEING DRIVEN HOME BY FAMILY. Addendum: 07/29/18 at 1327 by KATERINA EATON RN BELONGINGS WERE CHECKED AND GIVEN TO THE PATIENT.
== END 2018-07-29 13:20 | disposition home health service (06) | DRG 291 ==
LOC: ER 23:32 → TELE 07-24 01:13 → MED 07-24 10:40
PROVIDERS: ADMIT Student in an Organized Health Care Education/Training Program; ATTEND Family Medicine
PROC: 5A1D70Z Performance of Urinary Filtration, Intermittent, Less than 6 Hours Per Day (ICD-10-PCS; principal; 2018-07-24)
PROC: 5A1D70Z Performance of Urinary Filtration, Intermittent, Less than 6 Hours Per Day (ICD-10-PCS; 2018-07-25)
PROC: 5A1D70Z Performance of Urinary Filtration, Intermittent, Less than 6 Hours Per Day (ICD-10-PCS; 2018-07-27)
PROC: 5A1D70Z Performance of Urinary Filtration, Intermittent, Less than 6 Hours Per Day (ICD-10-PCS; 2018-07-28)
DX: I13.2 Hypertensive heart and chronic kidney disease with heart failure and with stage 5 chronic kidney disease, or end stage renal disease (principal); N18.6 End stage renal disease; J96.00 Acute respiratory failure, unspecified whether with hypoxia or hypercapnia; I50.23 Acute on chronic systolic (congestive) heart failure; N39.0 Urinary tract infection, site not specified; E44.1 Mild protein-calorie malnutrition; F33.2 Major depressive disorder, recurrent severe without psychotic features; F41.9 Anxiety disorder, unspecified; Z99.81 Dependence on supplemental oxygen; D69.6 Thrombocytopenia, unspecified; E11.22 Type 2 diabetes mellitus with diabetic chronic kidney disease; E66.01 Morbid (severe) obesity due to excess calories; G47.33 Obstructive sleep apnea (adult) (pediatric); D50.9 Iron deficiency anemia, unspecified; Z99.2 Dependence on renal dialysis; Z91.5 Personal history of self-harm; Z87.891 Personal history of nicotine dependence; R74.0 Nonspecific elevation of levels of transaminase and lactic acid dehydrogenase [LDH]; Z68.32 Body mass index [BMI] 32.0-32.9, adult; I08.0 Rheumatic disorders of both mitral and aortic valves; I05.2 Rheumatic mitral stenosis with insufficiency; Z95.810 Presence of automatic (implantable) cardiac defibrillator; B95.2 Enterococcus as the cause of diseases classified elsewhere; Z79.4 Long term (current) use of insulin; I25.5 Ischemic cardiomyopathy
CPT/HCPCS: 36415; 71045-TC; 80048-TC; 80053-TC; 80061-TC; 80076-TC; 80305; 81000-TC; 82728-TC; 82962-TC; 83540-TC; 83605-TC; 83735-TC; 83880; 84100-TC; 84155; 84165; 84443-TC; 84484-TC; 85025-TC; 85730-TC; 87040-TC; 87081-TC; 87086-TC; 87186-TC; 90935-TC; 93307-TC; A4216; A4606; G0378; G0480; J0290; J0456; J0696; J1644; J1650; J1815; J1940; J2916; J7030; J7050; J7060; Q0163; Z7610

== ENCOUNTER 2018-09-18 15:06 | Inpatient (IN) | payer MEDICAID, MEDICARE ==
[~2018-09-18] VITALS: Ht 165.1 cm; Wt 95.3 kg
[~2018-09-18 15:06] MED LIST: AMIO200T4 PO; CARV3.122 PO; FLUO-119 PO; INSU100V9 SQ; NITR0.4T48 SL; NPH,100V2 SQ; SEVE0.8P PO; TRAZ-213 PO
--- NOTE | 2018-09-18 15:15 | NUR ---
PT BIB DAUGHTER FROM HOME TO ER BED 05 C/O INTERMITTENT MIDSTERNAL CHEST PAIN, NON RADIATING SINCE YESTERDAY. PT STATES PAIN IS WORST 30 MINS RISK PREVENTION ENGINEER. PT IS ALSO DIALYSIS PATIENT AND HAD DIALYSIS YESTERDAY. GOWNED AND PLACED ON MONITOR. AWAITING MD BOGGS.
--- NOTE | 2018-09-18 15:20 | NUR ---
IV LINE STARTED BLOOD DRAWN AND SENT TO LAB.
--- NOTE | 2018-09-18 15:29 | NUR ---
DR NEGRETE AT BEDSIDE FOR EVAL.
[2018-09-18] MEDS ORDERED: ASPIRIN 325 MG TABLET PO ONE (15:30)
[2018-09-18] MEDS ORDERED: ASPIRIN 325 MG TABLET ONE (15:34)
[2018-09-18 15:38] LABS: BASOPHILS # (AUTO) 0.1 /CMM (0.0-0.2); BASOPHILS % (AUTO) 1.3 % (0.0-2.0); EOSINOPHILS % (AUTO) 1.4 % (0.0-6.0); HEMATOCRIT 37 % (39-51); HEMOGLOBIN 11.8 g/dL (13.5-17.5); LYMPHOCYTES # (AUTO) 0.5 /CMM (0.8-4.8); LYMPHOCYTES % (AUTO) 7.6 % (20.0-44.0); MEAN CORPUSCULAR HGB CONC 32 g/dl (31.0-36.0); MEAN CORPUSCULAR VOLUME 99 fL (80-96); MONOCYTES # (AUTO) 0.9 /CMM (0.1-1.30); MONOCYTES % (AUTO) 12.3 % (2.0-12.0); NEUTROPHILS # (AUTO) 5.6 /CMM (1.8-8.9); NEUTROPHILS % (AUTO) 77.4 % (43.0-81.0); PLATELET COUNT (AUTO) 116 /CMM (150-450); WHITE BLOOD COUNT (AUTO) 7.2 K/uL (4.3-11.0)
[2018-09-18] MEDS ORDERED: INSU100V27 SQ (15:47)
[2018-09-18] MEDS ORDERED: FLUO-119 PO (15:47)
[2018-09-18 15:56] LABS: CALCIUM, SERUM 9.2 mg/dL (8.5-10.1); POTASSIUM 5.2 mmol/L (3.5-5.1)
[2018-09-18 15:58] LABS: CREATININE 7.7 mg/dL (0.6-1.3)
--- NOTE | 2018-09-18 17:16 | NUR ---
PAGED [employer] FOR PANEL - MARKETING ANALYST DR. ALEM SALAZAR
[2018-09-18] MEDS ORDERED: HEPARIN SODIUM, PORCINE 5000 UNITS/1 ML VIAL IV ONE (19:00)
[2018-09-18] MEDS ORDERED: HEPARIN INFUSION/D5W 500 ML IV PRN (19:00)
[2018-09-18] MEDS ORDERED: HEPARIN SODIUM, PORCINE 5000 UNITS/1 ML VIAL ONE (19:21)
[2018-09-18] MEDS ORDERED: HEPARIN INFUSION/D5W 500 ML IV ONE (19:23)
[2018-09-18] MEDS ORDERED: TRAZODONE 50 MG TABLET PO PRN (19:30)
[2018-09-18] MEDS ORDERED: MAG HYDROX/AL HYDROX/SIMETH 30 ML UDC PO PRN (19:30)
[2018-09-18] MEDS ORDERED: hydrALAZINE HCL IV 20 MG VIAL IV PRN (19:30)
[2018-09-18] MEDS ORDERED: Z GUARD REMEDY 2 OZ OINT TP PRN (19:30)
[2018-09-18] MEDS ORDERED: HYDROCODONE/APAP 5/325MG 1 EACH TABLET PO PRN (19:30)
[2018-09-18] MEDS ORDERED: ONDANSETRON HCL/PF 4 MG/2 ML VIAL IVP PRN (19:30)
[2018-09-18] MEDS ORDERED: MORPHINE SULFATE INJ 2 MG/ML DISP.SYRIN IV PRN (19:30)
[2018-09-18] MEDS ORDERED: MAGNESIUM HYDROXIDE 30 ML UDC PO PRN (19:30)
--- NOTE | 2018-09-18 19:55 | NUR ---
REPORT GIVEN TO SHERICE TEJEAD. PT AWAITING TRANSFER TO FLOOR.
--- NOTE | 2018-09-18 20:00 | NUR ---
TELE/RN NOTES RECEIVED PT. FROM ER VIA GIOVANNY. PT. IS AWAKE, ALERT AND ORIENTED X3. BREATHING EVEN AND UNLABORED ON ROOM AIR. NO SOB, RESPIRATORY DISTRESS OR COMPLAINTS OF PAIN NOTED AT THIS TIME. ORIENTED PT. TO ROOM. PLACED EXTERNAL APPLIANCE TECHNICIAN ON PT. CURRENT RHYTHM = SINUS RHYTHM HR 85. PT. WITH LEFT AC 20 GAUGE PERIPHERAL IV PRESENT, PATENT AND INTACT ADMINISTERING TO PT. HEPARIN DRIP AT 1116 UNITS/HR. NO S/S OF BLEEDING NOTED. BED LOCKED AND IN LOWEST POSITION, SIDE RAILS UP X2, CALL LIGHT WITHIN REACH, WILL CONTINUE TO MONITOR.
[2018-09-18 20:10] VITALS: BP 91/52
[2018-09-18] MEDS ORDERED: HYDROMORPHONE INJ 0.5 MG/0.5 ML SYRINGE IV PRN (20:30)
[2018-09-18] MEDS ORDERED: INSULIN NPH, HUMAN ISOPHANE 100 UNIT/ML VIAL SQ SCH (21:00)
--- NOTE | 2018-09-18 21:54 | NUR ---
RESOURCE RN NOTES: ADMISSION DOCUMENTATION COMPLETED, PT WAS INTERVIEWED BY ASSIGNED RN AND MYSELF. PT IS A/O X3 GEORGIAN SPEAKING, UNDERSTAND AND SPEAK CANADIAN, GEORGIAN SPEAKING STAFF PRESENT AT BED SIDE IN CASE THERE WILL BE A NEED FOR TRANSLATION. PT WILL BE ADMITTED UNDER EPIC GROUP, ADMITTING DX NSTEMI, ESRD. PT RECEIVED BY ASSIGNED RN ON HEPARIN DRIP. AREA SECRETARY AND ASSIGNED RN NOTIFIED ER STAFF REGARDING HEPARIN DRIP COMPUTATION PAPER WORKS THIS WAS NOT INCLUDED IN THE PAPERS BROUGHT BY ER. PT'S WEIGHT OBTAINED ON THE FLOOR IS 209.9 LBS. REGARDING VACCINATION STATUS, PT CLAIMED HE RECEIVED PNEUMOCOCCAL AND FLU VACCINE, BUT UNABLE TO RECALL EXACT DATE. ASSIGNED RN TO DO/COMPLETE INITIAL PHYSICAL ASSESSMENT AND ASSUMED FULL PATIENT CARE.
[2018-09-18] MEDS: BLOOD SUGAR DIAGNOSTIC 1 EACH STRIP IN SCH (22:14)
--- NOTE | 2018-09-18 22:49 | NUR ---
TELE/RN NOTES NOTIFIED [facility] INSPECTOR ALUMINUM BOAT FELIBERTO SEGOVIA THAT PT. SECOND TROPONIN RESULTED AT 0.217, PREVIOUS TROPONIN WAS 0.199. PT. IS SINUS RHYTHM HR 91, NO COMPLAINTS OF CHEST PAIN NOTED AT THIS TIME. PER FELIBERTO SEGOVIA" PT. IS ON HEPARIN, NOT CONCERNED" NO NEW ORDERS AT THIS TIME. WILL CONTINUE TO MONITOR.
[2018-09-19] VITALS (9 sets, daily range): BP systolic 87–109; BP diastolic 58–78
--- NOTE | 2018-09-19 01:04 | NUR ---
TELE/RN NOTES PT. NOTED WITH VTACH ON EVP OF PRODUCTS & [employer] FOUNDER HR 140'S. PT. NOTED OFF BIPAP AND COMPLAINING OF MID CHEST PAIN. PLACED PT. ON O2. STAT EKG ORDERED. STAT LABS ORDERED. RT RICHELLE ARRIVED. VITAL SIGNS TAKEN. 0110 ADMINISTERED TO PT. 250ML NS BOLUS FOR SINUS TACHYCARDIA. 0115 PT. COMPLAINING OF CHEST PAIN 7/10 ADMINISTERED TO PT. FIRST DOSE OF NITROGLYCERIN ORDERED. 0120 PT. COMPLAINING OF CHEST PAIN 6/10 ADMINISTERED TO PT. SECOND DOSE NITROGLYCERIN MEDICATION ORDERED. SPOKE WITH [facility] CONTACT ACID PLANT OPERATOR FELIBERTO ONTIVEROS PER TOBACCO WAREHOUSE MANAGER NEW ORDERS: MORPHINE 2MG IVPUSH ONCE NOW. TOBACCO WAREHOUSE MANAGER NOTIFIED OF STAT EKG RESULTS STATING ACUTE MD.0125 PT. COMPLAINING OF CHEST PAIN 5/10 ADMINISTERED TO PT. ONE TIME DOSE MORPHINE 2MG IVPUSH. 0129 PT. COMPLAINING OF CHEST PAIN 5/10 ADMINISTERED TO PT. THIRD DOSE OF NITROGLYCERIN ORDERED. 0133 PT. COMPLAINING OF HEADACHE ADMINISTERED TO PT. TYLENOL 650 MG ORDERED. PER FELIBERTO ALBERTS TRANSFER PT. TO [facility] FOR CLOSE MONITORING. PT. LEFT THE FLOOR FOLLOWING ACLS PROTOCOL ACCOMPANIED BY 2 RN'S AND 1 GLAZE MIXER TO [facility] ROOM 117 IN STABLE CONDITION. REPORT GIVEN AT BEDSIDE TO ILEANA SANDERS. 0110: BP 94/65, HR 134, RR 22, T 98.0, O2 SAT 96% 0115: BP 108/76, HR 94 02 SAT 100% CHEST PAIN 02/18 0120: BP 109/73, HR 96 O2 SAT 100% CHEST PAIN 01/19 0125: BP 101/70, HR 89 O2 SAT 100% CHEST PAIN 01/19 0126 BP 104/78, HR 92 O2 SAT 100% CHEST PAIN 12/19 0129 BP 103/72, HR 92 O2 SAT 100% CHEST PAIN 10
[2018-09-19] MEDS: NITROGLYCERIN 0.4 MG/TAB BOTTLE SL PRN ×3 (01:11→01:26)
[2018-09-19] MEDS ORDERED: MORPHINE SULFATE INJ 4 MG/ML DISP.SYRIN IV STA (01:15)
--- NOTE | 2018-09-19 01:22 | NUR ---
ONE TIME DOSE MORPHINE: PER MD TO GIVE ONE TIME DOSE OF MORHINE FOR PT'S C/O CHEST PAIN PS 01/19, PRN MORPHINE 2MG IVP ADMINISTERED AT THIS TIME
[2018-09-19] MEDS: ACETAMINOPHEN 325 MG TABLET PO PRN ×2 (01:27→01:29)
--- NOTE | 2018-09-19 01:30 | NUR ---
PRN TYLENOL: ADMINISTERED TYLENOL 650 MG TAB PO FOR HEAD ACHE. WILL CONTINUE TO MONITOR AND REASSESS PT
[2018-09-19 01:34] LABS: CALCIUM, SERUM 9.2 mg/dL (8.5-10.1)
[2018-09-19 01:35] LABS: BASOPHILS # (AUTO) 0.2 /CMM (0.0-0.2); BASOPHILS % (AUTO) 2.5 % (0.0-2.0); EOSINOPHILS % (AUTO) 2.8 % (0.0-6.0); HEMATOCRIT 37 % (39-51); HEMOGLOBIN 11.8 g/dL (13.5-17.5); LYMPHOCYTES # (AUTO) 0.9 /CMM (0.8-4.8); LYMPHOCYTES % (AUTO) 13.2 % (20.0-44.0); MEAN CORPUSCULAR HGB CONC 32 g/dl (31.0-36.0); MEAN CORPUSCULAR VOLUME 99 fL (80-96); MONOCYTES # (AUTO) 0.9 /CMM (0.1-1.30); MONOCYTES % (AUTO) 12.6 % (2.0-12.0); NEUTROPHILS # (AUTO) 4.8 /CMM (1.8-8.9); NEUTROPHILS % (AUTO) 68.9 % (43.0-81.0); PLATELET COUNT (AUTO) 121 /CMM (150-450); RED BLOOD CELL COUNT(AUTO) 3.74 MIL/uL (4.5-6.0)
[2018-09-19 01:39] LABS: ALBUMIN 2.9 g/dL (3.4-5.0); BILIRUBIN,TOTAL 1.5 mg/dL (0.2-1.0); TOTAL PROTEIN, SERUM 7.6 g/dL (6.4-8.2)
[2018-09-19 01:41] LABS: POTASSIUM 5.3 mmol/L (3.5-5.1)
[2018-09-19 01:42] LABS: CREATININE 7.9 mg/dL (0.6-1.3)
--- NOTE | 2018-09-19 01:50 | NUR ---
ENRIQUE RN NOTES RECEIVED PATIENT TRANSFER FROM & REPORT GIVEN BY SHERICE TEJEDA. PATIENT CHANGED TO ENRIQUE STATUS FOR CARDIAC DISTRESS & POSITIVE FOR ACUTE CT ON EKG. OPERATIONS MANAGER ASSISTANT BEA AWARE. UPON ARRIVAL PATIENT DENIED OF ANY MORE CHEST PAIN. VSS. BP 103/73, HR 91, O2 SAT 100%, TEMP 97.6. O2 VIA NC CHANGED TO BIPAP BY RT. PATIENT TOLERATING WELL W/ NO RESPIRATORY DISTRESS NOTED. TELE MONITOR SHOWS SINUS RHYTHM. WILL CONTINUE TO MONITOR.
--- NOTE | 2018-09-19 02:36 | NUR ---
RT NOTES PLACED PT ON CPAP PER MD ORDER ON SETTING THAT PT SAID IS SIMILAR TO WHAT HE USES AT HOME. NO SOB, DISTRESS, OR ADVERSE EFFECTS NOTED. WILL CONT TO MONITOR PT FOR REST OF SHIFT. MEPILEX PLACED ON MASK. Addendum: 09/19/18 at 0239 by RICHELLE MURPHY RT Amended: Links added.
--- NOTE | 2018-09-19 03:00 | NUR ---
ENRIQUE RN NOTES PATIENT NOTED W/ VTACH ON TELE MONITOR & HR 130S @ 0255. UPON ASSESSMENT, PATIENT DENIED ANY CHEST PAIN OR DISCOMFORT. BP 104/76 & HR 80. SATING WELL @ 100% W/ BIPAP ON. PATIENT CONVERTED BACK TO SINUS RHYTHM @ 0259.
--- NOTE | 2018-09-19 03:15 | NUR ---
ENRIQUE RN NOTES NOTIFIED ADDRESSOGRAPH OPERATOR BEA OF PATIENT'S VTACH & RECEIVED NEW ORDER FOR X1 10 MG LISINOPRIL PO. INFORMED OF PATIENT'S BP OF 104/76 & PER BEA STILL OK TO GIVE.
[2018-09-19] MEDS ORDERED: LISINOPRIL (10MG) 10 MG TABLET PO ONE (03:30)
--- NOTE | 2018-09-19 06:56 | NUR ---
ENRIQUE RN NOTES NEW PTT = 49.9. PER HEPARIN PROTOCOL, NO CHANGE IN UNITS.
[2018-09-19 07:15] LABS: BASOPHILS # (AUTO) 0.2 /CMM (0.0-0.2); BASOPHILS % (AUTO) 3.3 % (0.0-2.0); EOSINOPHILS % (AUTO) 2.9 % (0.0-6.0); HEMATOCRIT 35 % (39-51); HEMOGLOBIN 11.2 g/dL (13.5-17.5); LYMPHOCYTES # (AUTO) 0.9 /CMM (0.8-4.8); LYMPHOCYTES % (AUTO) 14.5 % (20.0-44.0); MEAN CORPUSCULAR HGB CONC 33 g/dl (31.0-36.0); MEAN CORPUSCULAR VOLUME 98 fL (80-96); MONOCYTES # (AUTO) 0.8 /CMM (0.1-1.30); MONOCYTES % (AUTO) 13.2 % (2.0-12.0); NEUTROPHILS % (AUTO) 66.1 % (43.0-81.0); PLATELET COUNT (AUTO) 101 /CMM (150-450)
[2018-09-19 07:30] LABS: ALBUMIN 2.7 g/dL (3.4-5.0); BILIRUBIN,TOTAL 1.3 mg/dL (0.2-1.0); CALCIUM, SERUM 8.9 mg/dL (8.5-10.1); MAGNESIUM 2.2 mg/dL (1.8-2.4); PHOSPHORUS 7.2 mg/dL (2.5-4.9); POTASSIUM 5.5 mmol/L (3.5-5.1); TOTAL PROTEIN, SERUM 6.8 g/dL (6.4-8.2)
[2018-09-19] MEDS ORDERED: INSULIN LISPRO/ASPART 100 UNIT/ML CARTRIDGE SQ SCH (07:30)
--- NOTE | 2018-09-19 07:30 | NUR ---
RN NOTES RECEIVED PATIENT IN BED, A/OX3, ABLE TO MAKE NEEDS KNOWN BUT EXPRESS SELF BETTER IN UKRAINIAN. PATIENT DENIES CHEST PAIN NOR ANY KIND OF PAIN AT THIS TIME. NOT ON ANY FORM OF DISTRESS, WITH CPAP IN PLACE, BREATHING UNLABORED, SATING AT 96%, TELEMONITOR IN PLACE, SR: HR AT 98, DIALYSIS CATHETER ON THE R CHEST WALL IN PLACE, DRESSING IS DRY AND INTACT. ABDOMEN IS DISTENDED BUT PATIENT DENIES ANY DISCOMFORT, IV LINE TO THE LEFT AC: G [address] AND INTACT, FLUSHES WELL. HEPARIN DRIP ONGOING AT ORDERED SETTING. PATIENT ORIENTED TO FLOOR. ENCOURAGE TO USE CALL LIGHT FOR ASSISTANCE, SAFETY MEASURES OBSERVED AND MAITAINED, WILL CONTINUE TO MONITOR PATIENT CLOSELY
[2018-09-19 07:31] LABS: CREATININE 8.3 mg/dL (0.6-1.3)
[2018-09-19] MEDS: BLOOD SUGAR DIAGNOSTIC 1 EACH STRIP IN SCH ×4 (08:47→21:20)
[2018-09-19] MEDS: SEVELAMER CARBONATE 0.8 GM POWD.PACK PO SCH ×3 (08:47→17:39)
[2018-09-19] MEDS: AMIODARONE HCL 200 MG TABLET PO SCH (08:48)
[2018-09-19] MEDS: Fluoxetine 10 mg capsule PO SCH (08:48)
[2018-09-19] MEDS: CARVEDILOL 3.125 MG TABLET PO SCH ×2 (08:49→17:00)
[2018-09-19] MEDS: INSULIN LISPRO/ASPART 100 UNIT/ML CARTRIDGE SQ SCH ×2 (08:49→17:00)
--- NOTE | 2018-09-19 11:22 | NUR ---
RN NOTES NOON BLOOD SUGAR CHECK DONE BS AT 39. PRN ORDER FOR DEXTROSE 50/50 GIVEN. WILL RECHECK BLOOD SUGAR.
[2018-09-19] MEDS: DEXTROSE 50%-WATER 50 ML DISP.SYRIN IV PRN (11:23)
--- NOTE | 2018-09-19 12:00 | NUR ---
RN NOTES BLOOD SUGAR RECHECK RESULT AT 55, MEAL TRAY READY AT BEDSIDE. PATIENT ENCOURAGE TO EAT. WILL RECHECK BLOOD SUGAR
--- NOTE | 2018-09-19 13:00 | NUR ---
RN NOTES BLOOD SUGAR RECHECK RESULT ONE HOUR AFTER AT 103. PATIENT ON STABLE CONDITION
--- NOTE | 2018-09-19 14:00 | NUR ---
RN NOTES CLARIFIED WITH DR PAIZ IF HEPARIN DRIP SHOULD BE CONTINUED THE ONE RUNNING AT THIS TIME WAS STILL THE ONE ORDERED FROM THE ER. PER MD, DISCONTINUE MED. ORDER NOTED AND CARRIED OUT
--- NOTE | 2018-09-19 16:00 | NUR ---
ENRIQUE RN NOTES RECEIVED REPORT FROM ILEANA MESSINA FOR DARREN. PT ASLEEP IN BED, S/P HD 2L OUT TODAY. PT IS NOT IN DISTRESS. CALL LIGHT IN REACH. WILL CONT TO MONITOR.
--- NOTE | 2018-09-19 16:00 | NUR ---
RN NOTES ENDORSED PATIENT FOR CONTINUITY OF CARE. ON STABLE CONDITION. NOT ON ANY FORM OF DISTRESS.
--- NOTE | 2018-09-19 17:43 | NUR ---
ENRIQUE RN NOTES LISPRO NOT ADMINISTERED. BS 77MG/DL. RN, MAYURI NOTED DEC BS WITH PRIOR ADMINISTRATION OF LISPRO
--- NOTE | 2018-09-19 19:12 | NUR ---
ENRIQUE RN NOTES REPORT GIVEN TO PM SHIFT FOR DARREN. PT TOLERATING O2 VIA NC WELL. NO S/SX OF DISTRESS NOTED. ALL NEEDS ATTENDED TO. CALL LIGHT IN REACH.
--- NOTE | 2018-09-19 19:40 | NUR ---
Spoke with patient, he is alert and pleasant. He resides locally with his daughter. He speaks Croatian and Tajik. He is ambulatory and independent with adl's.He uses Bipap for sleep apnea. He receives hemodialysis every and Saturday @ [facility] [phone]. He was previously on service with [email or web address] [phone].Current dc plan is to return home. Family will provide ride. Addendum: 09/19/18 at 1947 by JOSE SAMAYOA RN Amended: Links added.
--- NOTE | 2018-09-19 19:47 | NUR ---
Spoke with patient, he is alert and pleasant, speaks Cook Islander and Serbian. He resides locally with his daughter.He is ambulatory and independent with adl's.He uses Bipap for sleep apnea. He receives hemodialysis every and Saturday @ [facility] [phone]. He was previously on service with [facility] [phone].Current dc plan is to return home. Family will provide ride. Addendum: 09/19/18 at 1947 by JOSE SAMAYOA RN Amended: Links added.
--- NOTE | 2018-09-19 20:32 | NUR ---
RT PATIENT REC'D ON NC THEN PLACED ON CPAP WITH CHARTED SETTINGS PER MD ORDER. PT TOLERATING CPAP WELL. NO SOB, NO RESPIRATORY DISTRESS NOTED AT THIS TIME. WILL CONTINUE TO MONITOR. Addendum: 09/19/18 at 2033 by JARED STEVENSON RT Amended: Links added.
--- NOTE | 2018-09-19 21:00 | NUR ---
TD RN NOTES RECEIVED PT ON BED, A/O X 4. ON NASAL CANNULA 4LPM SATURATING 94% NO RESPIRATORY DISTRESS NOTED. ON TELE MONITOR SR. IV ACCESS LAC G20 PATENT AND INTACT. HEAD OF BED ELEVATED. SIDE RAILS UP. CALL LIGHT WITHIN REACH. BED ALARM ON. WILL CONTINUE TO MONITOR PT CLOSELY.
--- NOTE | 2018-09-19 22:50 | NUR ---
TD RN NOTES PT ON BIPAP, SLEEPING WELL.
[2018-09-20] VITALS (7 sets, daily range): BP systolic 72–95; BP diastolic 45–62
[2018-09-20 06:48] LABS: BASOPHILS # (AUTO) 0.1 /CMM (0.0-0.2); BASOPHILS % (AUTO) 1.4 % (0.0-2.0); EOSINOPHILS % (AUTO) 2.3 % (0.0-6.0); HEMATOCRIT 36 % (39-51); HEMOGLOBIN 11.3 g/dL (13.5-17.5); LYMPHOCYTES # (AUTO) 0.6 /CMM (0.8-4.8); LYMPHOCYTES % (AUTO) 10.2 % (20.0-44.0); MEAN CORPUSCULAR HGB CONC 32 g/dl (31.0-36.0); MEAN CORPUSCULAR VOLUME 99 fL (80-96); MONOCYTES # (AUTO) 0.7 /CMM (0.1-1.30); MONOCYTES % (AUTO) 11.5 % (2.0-12.0); NEUTROPHILS # (AUTO) 4.6 /CMM (1.8-8.9); NEUTROPHILS % (AUTO) 74.6 % (43.0-81.0); PLATELET COUNT (AUTO) 102 /CMM (150-450); WHITE BLOOD COUNT (AUTO) 6.2 K/uL (4.3-11.0)
--- NOTE | 2018-09-20 07:08 | NUR ---
TD RN NOTES NO ACUTE CHANGES NOTED DURING THE SHIFT. PROVIDED COMFORT AND SAFETY. WILL ENDORSE TO THE AM NURSE FOR CONTINUITY OF CARE.
[2018-09-20 07:15] LABS: CALCIUM, SERUM 8.9 mg/dL (8.5-10.1); MAGNESIUM 2.1 mg/dL (1.8-2.4); PHOSPHORUS 6.6 mg/dL (2.5-4.9); POTASSIUM 5.2 mmol/L (3.5-5.1)
[2018-09-20] MEDS: BLOOD SUGAR DIAGNOSTIC 1 EACH STRIP IN SCH ×4 (07:44→22:05)
[2018-09-20] MEDS: Fluoxetine 10 mg capsule PO SCH (08:05)
[2018-09-20] MEDS: SEVELAMER CARBONATE 0.8 GM POWD.PACK PO SCH ×3 (08:05→17:35)
[2018-09-20] MEDS: CARVEDILOL 3.125 MG TABLET PO SCH (08:07)
[2018-09-20] MEDS: AMIODARONE HCL 200 MG TABLET PO SCH (08:07)
[2018-09-20] MEDS: INSULIN LISPRO/ASPART 100 UNIT/ML CARTRIDGE SQ SCH ×2 (08:08→17:31)
--- NOTE | 2018-09-20 09:35 | NUR ---
received pt from express manager, alert, follows commands, SR, SBP 70 - 80, Dr Pollard notified, no orders, Coreg and Amiodarone not given because of low BP, blood sugar 74 insulin not given, pt on 3L 02 sat well, c/o lateral chest pain, [place] 1 tab given MD notified, pt turns and repositions by himself.
[2018-09-20] MEDS ORDERED: ALBUMIN 25% 25 GM in PREMIX 1 EA IV PRN (11:00)
--- NOTE | 2018-09-20 18:27 | NUR ---
CLOSING PATIENT IN BED, A/OX3, ABLE TO MAKE NEEDS KNOWN BUT EXPRESS SELF BETTER IN YI. PATIENT DENIES CHEST PAIN NOR ANY KIND OF PAIN AT THIS TIME. NOT ON ANY FORM OF DISTRESS, WITH CPAP IN PLACE, BREATHING UNLABORED, SATING AT 96%, TRANSFERRED TO MED/SURG. DIALYSIS CATHETER ON THE R CHEST WALL IN PLACE, DRESSING IS DRY AND INTACT. ABDOMEN IS DISTENDED BUT PATIENT DENIES ANY DISCOMFORT, IV LINE TO THE LEFT AC: G [address] AND INTACT, FLUSHES WELL. HEPARIN DRIP DISCONTINUED. PATIENT ORIENTED TO FLOOR. ENCOURAGE TO USE CALL LIGHT FOR ASSISTANCE, SAFETY MEASURES OBSERVED AND MAITAINED, WILL CONTINUE TO MONITOR PATIENT CLOSELY
--- NOTE | 2018-09-20 19:20 | NUR ---
TELE/RN INITIAL DOSE RECEIVED PT IN BED, A/O X4. SR HR 80S ON TELE. ON 3L O2 VIA NC, NO SOB NOTED. PT DENIES PAIN BUT VERBALIZED,"NOT FEELING WELL." PER ENDORSEMENT, PT HAD HD TODAY AND HAD EPISODE OF HYPOTENSION. CURRENT SBP ON 80S. LEFT AC G20 HEPLOCK INTACT AND PATENT. RCHEST WALL HD CATH INTACT. HOB ELEVATED. SAFETY MEASURES IN PLACED. CALL LIGHT WITHIN REACH. WILL CONT TO MONITOR
--- NOTE | 2018-09-20 19:30 | NUR ---
RN NOTES PT C/O WEAKNESS AND AND NOTED HAND TREMORS, PT REQUESTED TO HAVE BLOOD SUGAR CHECK. CHECKED BS=46, ORANGE JUICE GIVEN AND PRN IV D50 GIVEN. WILL CONT TO MONITOR
[2018-09-20] MEDS: DEXTROSE 50%-WATER 50 ML DISP.SYRIN IV PRN ×2 (19:59→22:59)
--- NOTE | 2018-09-20 20:50 | NUR ---
RN NOTES RECHECKED BLOOD SUGAR=99, PT STATES, HE'S A LITTLE BETTER, NO MORE HAND TREMORS NOTED. WILL CONT TO MONITOR
--- NOTE | 2018-09-20 21:30 | NUR ---
RN NOTES BS FOR ROUTINE HS ACCUCHECK=44, PROTOCOL INITIATED. 2ND RECHECK=83, 3RD RECHECK=62. ORDERED STAT LAB BLOOD GLUCOSE PER PROTOCOL. ORANGE JUICE GIVEN TO PT. WILL CONT TO MONITOR
--- NOTE | 2018-09-20 22:50 | NUR ---
RN NOTES RECEIVED LAB BLOOD GLUCOSE= 63, NOTIFIED FACILITY EXAMINER BEA, RE: 1929 BS=46, D50 AND ORANGE JUICE GIVEN, RECHECKE AT 2049=99. 0 BS=44, 2ND CHECK=83, 3RD CHECK=62. STAT LAB ORDERED WITH BS OF 63. FACILITY EXAMINER ORDERED: MAY GIVE MORE ORANGE JUICE AND ONE MORE DOSE OF D50 IV. ORDERS NOTED AND CARRIED OUT
--- NOTE | 2018-09-20 23:31 | NUR ---
RN NOTES RECHECK CK=247. PT VERBALIZED HE'S FEELING MUCH BETTER. WILL CONT TO MONITOR
[2018-09-21] VITALS (7 sets, daily range): BP systolic 80–98; BP diastolic 43–66
--- NOTE | 2018-09-21 07:02 | NUR ---
RN NOTES PT IN STABLE CONDITION. NO S/SX OF HYPO/HYPERGLYCEMIA NOTED AT THIS TIME. ALL NEEDS ANTICIPATED. SAFETY MEASURES OBSERVED AT ALL TIMES. ENDORSED TO AM SHIFT RN FOR DARREN
[2018-09-21] MEDS: BLOOD SUGAR DIAGNOSTIC 1 EACH STRIP IN SCH ×4 (07:30→22:06)
--- NOTE | 2018-09-21 08:00 | NUR ---
rn note DID NOT ADMINISTER LISPRO INSULIN DUE TO MULTIPLE EPISODES OF HYPOGLYCEMIA DURING THE PM SHIFT. MONITORING BLOOD SUGAR DAY SHIFT RANGING 133 0730 AND 132 1200. CONTINUE TO MONITOR.
[2018-09-21] MEDS: SEVELAMER CARBONATE 0.8 GM POWD.PACK PO SCH ×3 (08:06→17:00)
[2018-09-21 08:07] LABS: BASOPHILS # (AUTO) 0.1 /CMM (0.0-0.2); EOSINOPHILS % (AUTO) 3.3 % (0.0-6.0); HEMATOCRIT 34 % (39-51); HEMOGLOBIN 10.8 g/dL (13.5-17.5); LYMPHOCYTES # (AUTO) 0.7 /CMM (0.8-4.8); LYMPHOCYTES % (AUTO) 11.1 % (20.0-44.0); MEAN CORPUSCULAR HGB CONC 32 g/dl (31.0-36.0); MEAN CORPUSCULAR VOLUME 98 fL (80-96); MONOCYTES # (AUTO) 0.7 /CMM (0.1-1.30); MONOCYTES % (AUTO) 11.3 % (2.0-12.0); NEUTROPHILS # (AUTO) 4.3 /CMM (1.8-8.9); NEUTROPHILS % (AUTO) 73.3 % (43.0-81.0); PLATELET COUNT (AUTO) 78 /CMM (150-450); RED BLOOD CELL COUNT(AUTO) 3.44 MIL/uL (4.5-6.0); WHITE BLOOD COUNT (AUTO) 5.9 K/uL (4.3-11.0)
[2018-09-21] MEDS: AMIODARONE HCL 200 MG TABLET PO SCH (08:07)
[2018-09-21] MEDS: Fluoxetine 10 mg capsule PO SCH (08:08)
[2018-09-21] MEDS: INSULIN REGULAR, HUMAN 100 UNIT/ML 3 ML VIAL SQ PRN ×2 (08:22→13:02)
[2018-09-21 08:43] LABS: CALCIUM, SERUM 8.7 mg/dL (8.5-10.1); MAGNESIUM 2.1 mg/dL (1.8-2.4); PHOSPHORUS 6.8 mg/dL (2.5-4.9); POTASSIUM 5.3 mmol/L (3.5-5.1)
[2018-09-21 08:46] LABS: CREATININE 7.6 mg/dL (0.6-1.3)
[2018-09-21 08:57] LABS: BAND % (MANUAL) 4 % (0.0-5.0); EOSINOPHILS % (MANUAL) 5 % (0-4); LYMPHOCYTES % (MANUAL) 12 % (16-48); MONOCYTES % (MANUAL) 8 % (0-11.0); NEUTROPHILS % (MANUAL) 71 (42-76)
[2018-09-21] MEDS: INSULIN LISPRO/ASPART 100 UNIT/ML CARTRIDGE SQ SCH (09:00)
--- NOTE | 2018-09-21 11:08 | NUR ---
RN AM SHIFT NOTE RECEIVED PATIENT FROM NIGHT NURSE, IN BED ALERT X4. IV PATENT AND INTACT, BLOOD SUGAR CHECKED 133. GAVE 2 UNTIS. DID NOT GIVE LONG ACTING LISPRO DUE TO MULTIPLE HYPOGLYCEMIC EPISODES THROUGH OUT THE EVENING 1930 46, LAB 0500 63. AWAITING ORDERS FROM . BED IN LOW POSITION, SAFETY MEASURES IN PLACE. CONTINUE TO MONITOR.
--- NOTE | 2018-09-21 11:10 | NUR ---
RN SHIFT NOTE D/C TO MED SURG
--- NOTE | 2018-09-21 18:10 | NUR ---
RN CLOSING NOTE PATIENT ALERT AND ORIENTED, AMBULATE WITH ASSIST TO RESTROOM. NASAL CANNULA 3 LITERS / MIN, SR 80-90. USES URINAL AT BEDSIDE, SKIN INTACT, LAST HD TODAY 1730. LAC 20 GAUGE INTACT PATENT. BLOOD SUGAR AT 5PM WAS 90. MONITOR FOR EPISODES OF HYPOGLYCEMIA. CONTINUE TO MONITOR PATIENT.
--- NOTE | 2018-09-21 19:10 | NUR ---
RN M/S NOTE PATIENT IS AOX4, RESTING WITH HOB ELEVATED, SPEECH CLEAR, ON 3L O2 VIA NC, ON BIPAP AT NIGHT, NO S/SX OF RESPIRATORY OR CARDIAC DISTRESS, ABLE TO VERBALIZE NEEDS, PATIENT DENIES PAIN, DENIES ANY S/SX OF HYPO/HYPERGLYCEMIA, SKIN KEPT CLEAN AND DRY, BED IN LOW LOCKED POSITION, CALL LIGHT WITHIN REACH, WILL CONTINUE TO MONITOR FOR ANY CHANGES IN CONDITION.
--- NOTE | 2018-09-21 21:50 | NUR ---
RT PLACED PATIENT ON CPAP WITH CHARTED SETTINGS PER MD ORDER . PATIENT AWAKE AND ALERT. PATIENT STABLE AND TOLERATED CPAP AT THIS TIME , NO RESPIRATORY DISTRESS NOTED . WILL CONTINUE TO MONITOR PATIENT. Addendum: 09/21/18 at 2159 by HUBERT HART RT Amended: Links added.
--- NOTE | 2018-09-22 03:30 | NUR ---
RN M/S NOTE PATIENT REQUESTING COUGH MEDICATION, MESSAGE TO ZURI DAO FOR MEDICATION ORDERS, ORDERS FOR ROBITUSSIN DM 5ML Q4H PRN FOR COUGH
[2018-09-22] MEDS: GUAIFENESIN/D-METHORPHAN HB 5 ML UDC PO PRN ×2 (03:45→12:29)
[2018-09-22 04:00] VITALS: BP 86/58
[2018-09-22 06:52] LABS: BASOPHILS # (AUTO) 0.1 /CMM (0.0-0.2); BASOPHILS % (AUTO) 1.1 % (0.0-2.0); EOSINOPHILS % (AUTO) 2.9 % (0.0-6.0); HEMATOCRIT 36 % (39-51); HEMOGLOBIN 11.8 g/dL (13.5-17.5); LYMPHOCYTES # (AUTO) 0.5 /CMM (0.8-4.8); LYMPHOCYTES % (AUTO) 9.2 % (20.0-44.0); MEAN CORPUSCULAR HGB CONC 33 g/dl (31.0-36.0); MEAN CORPUSCULAR VOLUME 98 fL (80-96); MONOCYTES # (AUTO) 0.7 /CMM (0.1-1.30); MONOCYTES % (AUTO) 12.3 % (2.0-12.0); NEUTROPHILS % (AUTO) 74.5 % (43.0-81.0); PLATELET COUNT (AUTO) 61 /CMM (150-450); RED BLOOD CELL COUNT(AUTO) 3.71 MIL/uL (4.5-6.0); WHITE BLOOD COUNT (AUTO) 5.4 K/uL (4.3-11.0)
[2018-09-22 07:10] LABS: CALCIUM, SERUM 8.6 mg/dL (8.5-10.1); CREATININE 6.5 mg/dL (0.6-1.3); MAGNESIUM 2.1 mg/dL (1.8-2.4); POTASSIUM 4.6 mmol/L (3.5-5.1)
--- NOTE | 2018-09-22 07:20 | NUR ---
RN OPENING NOTE RECEIVED PATIENT ASLEEP IN BED BUT EASILY AROUSABLE. IV PATENT INTACT AND SALINE FLUSHED, BLOOD SUGAR CHECKED FOR 0730 AND WAS 110. NO INSULIN COVERAGE. NO COMPLAINS OF PAIN OR SOB OR ANY DISCOMFORT. BED LOCKED AND IN LOW POSITION. CALL LIGHT WITHIN REACH. SAFETY MEASURES IN PLACE. WILL CONTINUE TO MONITOR THROUGHOUT THE SHIFT.
[2018-09-22] MEDS: BLOOD SUGAR DIAGNOSTIC 1 EACH STRIP IN SCH ×4 (07:52→21:27)
[2018-09-22 08:00] VITALS: BP 102/64
[2018-09-22] MEDS: Fluoxetine 10 mg capsule PO SCH (08:18)
[2018-09-22] MEDS: SEVELAMER CARBONATE 0.8 GM POWD.PACK PO SCH ×3 (08:18→18:12)
[2018-09-22] MEDS: AMIODARONE HCL 200 MG TABLET PO SCH (08:18)
[2018-09-22] MEDS: INSULIN LISPRO/ASPART 100 UNIT/ML CARTRIDGE SQ SCH ×2 (08:58→17:00)
--- NOTE | 2018-09-22 12:15 | NUR ---
RN NOTE PATIENT'S BLOOD SUGAR LEVEL WAS 40. PATIENT WAS ALERT AND WAS GIVEN ORANGE JUICE. RECHECKED THE BLOOD SUGAR AND WAS STILL LOW, ONLY WENT UP TO 41. ADMINISTERED D50 ON HIS IV LEFT AC. BLOOD SUGAR WENT UP TO 179 MG/DL. PATIENT VERBALIZES THAT HE IS FEELING A LOT BETTER.
[2018-09-22] MEDS: DEXTROSE 50%-WATER 50 ML DISP.SYRIN IV PRN (12:38)
[2018-09-22 14:06] LABS: ABG BASE EXCESS 0.5 mmol/L; ABG OXYGEN SATURATION 96.9 % (92.0-98.5); ABG PCO2 38.4 mmHg (35.0-45.0); ABG PH 7.427 (7.350-7.450); ABG PO2 96.8 mmHg (75.0-100.0); AaDO2 86.4 mmHg; COHb 0.8 % (0.5-1.5); MetHb 0.7 % (0.0-1.5); O2Hb 95.4 % (94.0-97.0); SITE, ABG Right Radial; VENT MODE, BG Nasal Cannula
[2018-09-22] MEDS ORDERED: NEPRO VAN 237 ML CAN PO PRN (15:00)
[2018-09-22 16:00] VITALS: BP 97/60
--- NOTE | 2018-09-22 18:44 | NUR ---
RN NOTE: INFORMED DR. DALTON RE: THE PATIENT'S BLOOD SUGAR LEVELS DURING THE DAY. MD WAS MADE AWARE THAT THE PATIENT HAS A INSULIN HUMALOG 25 UNIT SQ BID. THE SCHEDULED INSULIN DOSE AT 5 PM WAS HELD DUE TO THE NORMAL BLOOD SUGAR. PATIENT ATE 50-100% OF HIS MEAL. MD WAS ALSO INFORMED OF THE DIETITIAN RECOMMENDATION TO START THE PATIENT WITH NEPHROVITE DAILY. ORDER, NOTED AND CARRIED OUT. PATIENT MADE AWARE.
--- NOTE | 2018-09-22 19:10 | NUR ---
RN M/S NOTE PATIENT IS AOX4, SITTING AT SIDE OF BED, SPEECH CLEAR, ON 3L O2 VIA NC, NO S/SX OF RESPIRATORY OR CARDIAC DISTRESS, ABLE TO VERBALIZE NEEDS, PATIENT DENIES PAIN, DENIES ANY S/SX OF HYPO/HYPERGLYCEMIA, LAC #20G IV PATENT, FLUSHING WELL, RIGHT CHEST WALL HD CATH, DRESSING CLEAN AND DRY, SKIN KEPT CLEAN AND DRY, BED IN LOW LOCKED POSITION, CALL LIGHT WITHIN REACH, WILL CONTINUE TO MONITOR FOR ANY CHANGES IN CONDITION.
[2018-09-22 20:00] VITALS: BP 97/75
[2018-09-23 04:00] VITALS: BP 86/54
--- NOTE | 2018-09-23 05:12 | NUR ---
RN NOTE HEART RATE OF 120 BEATS/MIN A-FIB WITH V-PACING, PATIENT WITH A HISTORY OF A-FIB AND LEFT CHEST PACEMAKER, NOTIFIED BEA LOOMIS, PER JULIETTE LOOMIS "PATIENT IS ALREADY ON COUMADIN, CARDIZEM AND METOPROLOL, DO EKG, AND PUT AN ORDER FOR JIGMAN TO SEE DR PAIZ, NOTIFY AM SHIFT TO SHOW EKG TO DR PAIZ". ORDER WAS CARRIED OUT, WILL CONTINUE TO MONITOR PATIENT
[2018-09-23 06:39] LABS: BASOPHILS % (AUTO) 0.3 % (0.0-2.0); EOSINOPHILS % (AUTO) 4.1 % (0.0-6.0); HEMATOCRIT 32 % (39-51); HEMOGLOBIN 10.8 g/dL (13.5-17.5); LYMPHOCYTES # (AUTO) 0.8 /CMM (0.8-4.8); LYMPHOCYTES % (AUTO) 12.2 % (20.0-44.0); MEAN CORPUSCULAR HGB CONC 34 g/dl (31.0-36.0); MEAN CORPUSCULAR VOLUME 96 fL (80-96); MONOCYTES # (AUTO) 0.9 /CMM (0.1-1.30); MONOCYTES % (AUTO) 13.4 % (2.0-12.0); NEUTROPHILS # (AUTO) 4.7 /CMM (1.8-8.9); PLATELET COUNT (AUTO) 112 /CMM (150-450); WHITE BLOOD COUNT (AUTO) 6.7 K/uL (4.3-11.0)
--- NOTE | 2018-09-23 06:52 | NUR ---
RN NOTE PATIENT RESTED WELL AT NIGHT, NO RESPIRATORY DISTRESS NOTED, TOLERATES NOCTURNAL BIPAP WELL, ALL SAFETY MEASURES TAKEN, WILL PROVIDE BEDSIDE REPORT TO AM NURSE
[2018-09-23 07:20] LABS: LYMPHOCYTES % (MANUAL) 15 % (16-48)
[2018-09-23 07:21] LABS: MONOCYTES % (MANUAL) 11 % (0-11.0); NEUTROPHILS % (MANUAL) 74 (42-76)
--- NOTE | 2018-09-23 07:30 | NUR ---
RN NOTES RECEIVED PATIENT IN BED, A/OX3, ABLE TO MAKE NEEDS KNOWN, PATIENT DENIES CHEST PAIN NOR ANY KIND OF PAIN AT THIS TIME. NOT ON ANY FORM OF DISTRESS, WITH CPAP IN PLACE, BREATHING UNLABORED, SATING AT 96%, DIALYSIS CATHETER ON THE R CHEST WALL IN PLACE, DRESSING IS DRY AND INTACT. IV LINE LFA G 22: IN PLACE AND INTACT, FLUSHES WELL: SL. ENCOURAGE TO USE CALL LIGHT FOR ASSISTANCE, SAFETY MEASURES OBSERVED AND MAINTAINED, WILL CONTINUE TO MONITOR PATIENT CLOSELY
[2018-09-23 08:00] VITALS: BP 89/67
[2018-09-23 08:22] LABS: CALCIUM, SERUM 8.7 mg/dL (8.5-10.1); CREATININE 5.8 mg/dL (0.6-1.3); MAGNESIUM 1.9 mg/dL (1.8-2.4); PHOSPHORUS 5.3 mg/dL (2.5-4.9); POTASSIUM 4.7 mmol/L (3.5-5.1)
[2018-09-23] MEDS: BLOOD SUGAR DIAGNOSTIC 1 EACH STRIP IN SCH ×4 (08:27→21:22)
[2018-09-23] MEDS: INSULIN REGULAR, HUMAN 100 UNIT/ML 3 ML VIAL SQ PRN (08:28)
[2018-09-23] MEDS: INSULIN LISPRO/ASPART 100 UNIT/ML CARTRIDGE SQ SCH ×2 (08:30→17:00)
[2018-09-23] MEDS: SEVELAMER CARBONATE 0.8 GM POWD.PACK PO SCH ×3 (08:30→16:12)
[2018-09-23] MEDS: Fluoxetine 10 mg capsule PO SCH (08:30)
[2018-09-23] MEDS: VIT B CMPLX 3/FA/VIT C/BIOTIN 1 TAB TABLET PO SCH (08:30)
[2018-09-23] MEDS: AMIODARONE HCL 200 MG TABLET PO SCH (08:31)
--- NOTE | 2018-09-23 09:50 | NUR ---
RT NOTE: ALERT PATIENT WAS OFF BIPAP THIS MORNING AT 7 AM. NOW HE WAS PLACED BACK ON PER REQUEST. PATIENT STATES THAT HE WOULD LIKE TO TAKE A NAP AND WANTS BIPAP ON. RESUMED ORDERED SETTINGS AND IS TOLERATING WELL.
[2018-09-23 12:00] VITALS: BP 89/67
[2018-09-23 16:00] VITALS: BP 97/68
[2018-09-23] MEDS: CEFTRIAXONE 1 G in IV D5W 50 ML IV SCH (16:42)
--- NOTE | 2018-09-23 17:18 | NUR ---
RT NOTE: PATIENT IS AWAKE. OFF BIPAP TOLERATING WELL.
--- NOTE | 2018-09-23 19:15 | NUR ---
RT NOTE: PT PLACED ON BIPAP AT THIS TIME WITH NOTED SETTINGS PER MD ORDERS. VENT ALARMS AUDIBLE AND PLUGGED INTO RED OUTLET. NO RESP DISTRESS NOTED AT THIS TIME. WILL CONT TO MONITOR PT. Addendum: 09/24/18 at 0512 by PAUL MULLER RT Amended: Links added.
--- NOTE | 2018-09-23 19:30 | NUR ---
RN NOTE: RECEIVED PT IN STABLE CONDITION, A&O X4. CURRENTLY RECEIVING DIALYSIS AT BEDSIDE, TOLERATING WELL. NO SIGNS OF SOB OR DISTRESS. SAFETY MEASURES IN PLACE: BED LOW, LOCKED, UPPER RAILS UP, CALL LIGHT WITHIN REACH. WILL CONT TO MONITOR.
--- NOTE | 2018-09-23 19:35 | NUR ---
RN NOTES ENDORSED PATIENT FOR CONTINUITY OF CARE. NO ACUTE CHANGES WITHIN THE SHIFT. NOT ON ANY FORM OF DISTRESS. ONGOING DIALYSIS TREATMENT. ALL NURSING NEEDS ATTENDED AND MET. SAFETY MEASURES IN PLACE AT ALL TIMES
[2018-09-23 20:00] VITALS: BP 100/70
[2018-09-24 04:00] VITALS: BP 98/59
--- NOTE | 2018-09-24 06:36 | NUR ---
MS RN NOTE PT IN STABLE CONDITION, A&O X4. CURRENTLY SITTING AT BEDSIDE. ALL NEEDS MET THROUGHOUT SHIFT. NO SIGNS OF SOB OR DISTRESS. SAFETY MEASURES IN PLACE: BED LOW, LOCKED, UPPER RAILS UP, CALL LIGHT WITHIN REACH. WILL CONT TO MONITOR AND ENDORSE TO NEXT SHIFT FOR DARREN.
[2018-09-24] MEDS: BLOOD SUGAR DIAGNOSTIC 1 EACH STRIP IN SCH ×4 (06:41→21:23)
--- NOTE | 2018-09-24 07:16 | NUR ---
MS RN OPENING NOTE RECEIVED PATIENT IN BED. SLEEPING WITH BIPAP MACHINE IN PLACE, EASILY AROUSED WITH VERBAL STIMULI. ORIENTED X4. IN NO APPARENT DISTRESS OR DISCOMFORT AT THIS TIME. RESPIRATIONS EVEN AND UNLABORED. DENIES PAIN AND SOB. PATIENT IS ABLE TO COMMUNICATE NEEDS, INDEPENDENT WITH MOBILITY, LEFT AC 20 IVC, SL. RIGHT CW HD CATHETER, INTACT. PATIENT KEPT CLEAN AND COMFORTABLE. ALL NEEDS ATTENDED, SAFETY MEASURES IN PLACE, BED IN LOW LOCKED POSITION, SIDE RAILS UP X2, CALL LIGHT WITHIN EASY REACH. WILL CONTINUE TO MONITOR.
[2018-09-24 08:00] VITALS: BP 95/67
[2018-09-24] MEDS: VIT B CMPLX 3/FA/VIT C/BIOTIN 1 TAB TABLET PO SCH (08:48)
[2018-09-24] MEDS: SEVELAMER CARBONATE 0.8 GM POWD.PACK PO SCH ×3 (08:48→17:20)
[2018-09-24] MEDS: Fluoxetine 10 mg capsule PO SCH (08:48)
[2018-09-24] MEDS: AMIODARONE HCL 200 MG TABLET PO SCH (08:49)
[2018-09-24] MEDS: INSULIN LISPRO/ASPART 100 UNIT/ML CARTRIDGE SQ SCH ×2 (08:50→17:19)
[2018-09-24 10:00] VITALS: BP 95/67
[2018-09-24] MEDS: INSULIN REGULAR, HUMAN 100 UNIT/ML 3 ML VIAL SQ PRN ×2 (12:29→17:21)
[2018-09-24] MEDS: AZITHROMYCIN 500 MG in IV D5W 250 ML IV SCH (13:04)
[2018-09-24] MEDS: CEFTRIAXONE 1 G in IV D5W 50 ML IV SCH (15:02)
[2018-09-24 16:00] VITALS: BP 114/63
--- NOTE | 2018-09-24 18:32 | NUR ---
MS RN CLOSING NOTE PATIENT IN BED, SITTING ON THE SIDE, ALERT ORIENTED X4. ON ROOM AIR, TOLERATING WELL. IN NO APPARENT DISTRESS OR DISCOMFORT AT THIS TIME. RESPIRATIONS EVEN AND UNLABORED. DENIES PAIN AND SOB. PATIENT IS ABLE TO COMMUNICATE NEEDS, INDEPENDENT WITH MOBILITY AND AMBULATION. LEFT AC 20G IVC, SL, PATENT AND INTACT. RIGHT CW HD CATHETER, INTACT. PATIENT KEPT CLEAN AND COMFORTABLE. ALL NEEDS ATTENDED, ORDERS RENDERED, SAFETY MEASURES IN PLACE, BED IN LOW LOCKED POSITION, SIDE RAILS UP X2, CALL LIGHT WITHIN EASY REACH. WILL ENDORSE TO PM NURSE FOR DARREN.
--- NOTE | 2018-09-24 19:41 | NUR ---
RT Pt received on cpap with charted settings per md order. Pt is sleeping and tolerating settings well. Pt is stable. No respiratory distress or sob noted @ this time. Will continue to monitor. Addendum: 09/24/18 at 2025 by BETHANY ANGULO RT Amended: Links added.
[2018-09-24 20:00] VITALS: BP 92/62
--- NOTE | 2018-09-24 20:40 | NUR ---
2039 SUMMONED TO PATIENT'S ROOM DUE TO C/O CHEST PAIN 10/10, AWAKE AND VERBALLY RESPONSIVE, ON BIPAP MACHINE WITH PRESCRIBED SETTINGS, O2 SATURATION AT 100%, B/P CHECKED AND OBTAINED 93/75, HR 87, PLACED PATIENT ON TELE MONITOR, 100% V-PACED NOTED. NOTIFIED DONKEY ENGINE FIRER/FIREMAN HONORIO OF PATIENT'S CHANGE OF CONDITION WITH ORDER FOR STAT EKG AND UPGRADE TO TELE STATUS, ORDER NOTED AND CARRIED OUT.
--- NOTE | 2018-09-24 21:00 | NUR ---
2100 RE ASSESSED PATIENT, EYES CLOSED BUT WAKES UP EASILY, CHEST PAIN 5/10 WHEN ASKED, B/P 100/70 AT THIS TIME, EKG RESULT RELAYED TO FELIBERTO OLMEDO WITH NO ORDER AT THIS TIME. WILL CONT. TO MONITOR CLOSELY.
[2018-09-25 04:00] VITALS: BP 108/66
--- NOTE | 2018-09-25 07:15 | NUR ---
RN CLOSING NOTE PATIENT IN BED, ALERT ORIENTED X4. ON ROOM AIR, TOLERATING WELL. IN NO APPARENT DISTRESS OR DISCOMFORT AT THIS TIME. RESPIRATIONS EVEN AND UNLABORED. DENIES PAIN AND SOB. PATIENT IS ABLE TO COMMUNICATE NEEDS, INDEPENDENT WITH MOBILITY AND AMBULATION. LEFT AC 20G IVC, SL, PATENT AND INTACT. RIGHT CW HD CATHETER, INTACT. PATIENT KEPT CLEAN AND COMFORTABLE. ALL NEEDS ATTENDED, ORDERS RENDERED, SAFETY MEASURES IN PLACE, BED IN LOW LOCKED POSITION, SIDE RAILS UP X2, CALL LIGHT WITHIN EASY REACH. WILL ENDORSE TO AM NURSE FOR DARREN.
[2018-09-25 08:00] VITALS: BP 88/63
--- NOTE | 2018-09-25 08:00 | NUR ---
COMPUTER TERMINAL OPERATOR NOTE PATIENT IN BED, ALERT ORIENTED X4. ON BYPAP AMASHINE TOLERATING WELL. IN NO APPARENT DISTRESS OR DISCOMFORT AT THIS TIME. RESPIRATIONS EVEN AND UNLABORED. DENIES PAIN AND SOB. PATIENT IS ABLE TO COMMUNICATE NEEDS, INDEPENDENT WITH MOBILITY AND AMBULATION. LEFT AC 20G IVC, SL, PATENT AND INTACT. RIGHT CW HD CATHETER, INTACT. PATIENT KEPT CLEAN AND COMFORTABLE. ALL NEEDS ATTENDED, ORDERS RENDERED, SAFETY MEASURES IN PLACE, BED IN LOW LOCKED POSITION WILL ENDORSE TO AM
[2018-09-25] MEDS: AMIODARONE HCL 200 MG TABLET PO SCH (09:00)
[2018-09-25] MEDS: INSULIN LISPRO/ASPART 100 UNIT/ML CARTRIDGE SQ SCH ×2 (09:00→17:00)
--- NOTE | 2018-09-25 09:00 | NUR ---
PT TAKEN BIPAP OFF HIMSELF AND PLACED ON ROOM AIR. NO RESP DISTRESS OR SOB. PT ALERT AND AWAKE. RN AWARE. WILL CONTINUE TO MONITOR. Addendum: 09/25/18 at 1641 by NIKOLE CARRION RT Amended: Links added.
[2018-09-25] MEDS: Fluoxetine 10 mg capsule PO SCH (09:33)
[2018-09-25] MEDS: SEVELAMER CARBONATE 0.8 GM POWD.PACK PO SCH ×3 (09:33→18:04)
[2018-09-25] MEDS: VIT B CMPLX 3/FA/VIT C/BIOTIN 1 TAB TABLET PO SCH (09:33)
[2018-09-25] MEDS: BLOOD SUGAR DIAGNOSTIC 1 EACH STRIP IN SCH ×4 (09:36→22:06)
--- NOTE | 2018-09-25 09:42 | NUR ---
CONTRACT IMPLEMENTATION ANALYST NOTE DR PAIZ NOTIFIED THAT BP 88/63 OK TO HOLD AMIODARONE
--- NOTE | 2018-09-25 11:13 | NUR ---
TELE RNNOTE SPOKE WITH DR ALLEN NOTIFIED THAT PATIENT STATED THAT DONT FEEL OK WILL HAVE HD TODAY, STATED WILL SEE PATIENT SOON
[2018-09-25 12:00] VITALS: BP 87/61
[2018-09-25] MEDS: AZITHROMYCIN 500 MG in IV D5W 250 ML IV SCH (12:05)
[2018-09-25] MEDS: INSULIN REGULAR, HUMAN 100 UNIT/ML 3 ML VIAL SQ PRN ×2 (12:31→22:06)
--- NOTE | 2018-09-25 15:17 | NUR ---
BAR CAPTAIN NOTE SPOKE WITH DR PURDY. NOTIFIED THAT PATIENT WANTS TO USE BIPAP DURING NAP TIME DAY TIME, STATED ITS OK TO USE BIPAP DURING DAY TIME WHEN NAP
--- NOTE | 2018-09-25 15:46 | NUR ---
TLE RN NOTE STARTED ON HD AT THIS TIME
--- NOTE | 2018-09-25 15:50 | NUR ---
PT FOUND ON BIPAP PER PT REQUEST DURING DIALYSIS. DR PURDY AND PHARMACY LABORATORY TECHNICIAN AWARE. Addendum: 09/25/18 at 1703 by NIKOLE CARRION RT Amended: Links added.
[2018-09-25 16:00] VITALS: BP 90/58
--- NOTE | 2018-09-25 16:12 | NUR ---
ASSEMBLER CONVERTIBLE TOP NOTE UNABLE TO GIVE ROCEPHIN IV AT THIS TIME PATIENT ON HD
[2018-09-25] MEDS: CEFTRIAXONE 1 G in IV D5W 50 ML IV SCH (18:04)
--- NOTE | 2018-09-25 18:08 | NUR ---
GYROSCOPIC INSTRUMENT TESTER NOTE HD COMPLETED ,REMOVE 1300 ML BP 93/46 HR 87
--- NOTE | 2018-09-25 19:15 | NUR ---
TELE/RN INITIAL NOTES RECEIVED PT IN BED, A/O X4. ON 3L O2 VIA NC, NO SOB NOTED. VPACING ON TELE. NO C/O PAIN AT THIS TIME. WITH INTACT AND PATENT (R)FA G20 HEPLOCK. (R)CHEST HD CATH PATENT. HOB ELEVATED. SAFETY MEASURES IN PLACED. CALL LIGHT WITHIN EASY REACH. WILL CONT TO MONITOR
[2018-09-25 20:00] VITALS: BP 101/71
[2018-09-26] VITALS: BP 94/71
[2018-09-26 04:00] VITALS: BP 100/69
--- NOTE | 2018-09-26 06:43 | NUR ---
RN NOTES PT IN STABLE CONDITION. NO ACUTE CHANGES NOTED THROUGHOUT SHIFT. ALL NEEDS ANTICIPATED. SAFETY MEASURES OBSERVED AT ALL TIMES. ENDORSED TO AM SHIFT RN FOR DARREN
--- NOTE | 2018-09-26 07:10 | NUR ---
Nurse Notes: Report obtained from Preethi TEJEDA, patient is sleeping with the BiPap on, in no respiratory distress. Heplock intact right arm.
--- NOTE | 2018-09-26 07:55 | NUR ---
PT TAKEN OFF BIPAP AND PLACED ON 2LNC. NO RESP DISTRESS OR SOB NOTED. RN AWARE. Addendum: 09/26/18 at 08 by NIKOLE CARRION RT Amended: Links added. Addendum: 09/26/18 at 0824 by NIKOLE CARRION RT PT PLACED ON ROOM AIR, NOT 2LNC
[2018-09-26 08:00] VITALS: BP 93/66
[2018-09-26] MEDS: SEVELAMER CARBONATE 0.8 GM POWD.PACK PO SCH ×3 (08:00→19:16)
[2018-09-26] MEDS: BLOOD SUGAR DIAGNOSTIC 1 EACH STRIP IN SCH ×4 (08:04→21:34)
[2018-09-26 09:08] LABS: ABG BASE EXCESS -0.7 mmol/L; ABG OXYGEN SATURATION 90.6 % (92.0-98.5); ABG PCO2 40.2 mmHg (35.0-45.0); ABG PH 7.396 (7.350-7.450); ABG PO2 62.9 mmHg (75.0-100.0); AaDO2 38.7 mmHg; MetHb 0.4 % (0.0-1.5); O2Hb 89.3 % (94.0-97.0); SITE, ABG Left Radial; VENT MODE, BG room air
--- NOTE | 2018-09-26 09:41 | NUR ---
PT PLACED ON BIPAP PER PT REQUEST DURING DIALYSIS. ILEANA AND DR PURDY AWARE Addendum: 09/26/18 at 1148 by NIKOLE CARRION RT Amended: Links added.
[2018-09-26] MEDS: INSULIN LISPRO/ASPART 100 UNIT/ML CARTRIDGE SQ SCH ×2 (10:27→16:42)
--- NOTE | 2018-09-26 11:26 | NUR ---
RN NOTE: HD NURSE BILL REPORTED THAT THE PATIENT WAS DONE WITH HEMODIALYSIS AND 2L OF FLUID WAS REMOVED. LAST BP 88/62 HR= 74. PRIMARY NURSE MADE AWARE.
[2018-09-26 12:10] VITALS: BP 91/57
[2018-09-26] MEDS: VIT B CMPLX 3/FA/VIT C/BIOTIN 1 TAB TABLET PO SCH (12:24)
[2018-09-26] MEDS: AMIODARONE HCL 200 MG TABLET PO SCH (12:24)
[2018-09-26] MEDS: Fluoxetine 10 mg capsule PO SCH (12:24)
[2018-09-26] MEDS: AZITHROMYCIN 500 MG in IV D5W 250 ML IV SCH (12:34)
--- NOTE | 2018-09-26 12:41 | NUR ---
Accu-check was done, 45 @ 1219 patient just ambulated to bathroom, patient had dialysis this morning. patient was given 2 orange juice with 4 sugar, second one with 2 sugar. recheck accu-check was 78. patient will try to eat his lunch
--- NOTE | 2018-09-26 15:10 | NUR ---
patient asking for accu-check to be recheck. was 49, patient was given D50 IV slowly push. patient is feeling better.
[2018-09-26] MEDS: DEXTROSE 50%-WATER 50 ML DISP.SYRIN IV PRN (15:13)
[2018-09-26 16:00] VITALS: BP 95/64
--- NOTE | 2018-09-26 17:08 | NUR ---
[facility] doctors was call to correct Humalog [address] Andino not salesperson art objects, Dr Gonzalez answer call, order the Humalog to be decreased to 12 units BID, will hold evening Humalog insulin
[2018-09-26] MEDS: CEFTRIAXONE 1 G in IV D5W 50 ML IV SCH (17:44)
--- NOTE | 2018-09-26 19:10 | NUR ---
TELE/RN INITIAL NOTES RECEIVED PT IN BED, A/O X4. ON 3L O2 VIA NC NO SOB NOTED. NO C/O PAIN AT THIS TIME. WITH INTACT AND PATENT (R)FA G20 HEPLOCK. (R)CHEST HD CATH PATENT. HOB ELEVATED. SAFETY MEASURES IN PLACED. CALL LIGHT WITHIN EASY REACH. WILL CONT TO MONITOR
[2018-09-26 20:00] VITALS: BP 95/67
--- NOTE | 2018-09-26 20:20 | NUR ---
RT PATIENT REC'D ON BIPAP WITH CHARTED SETTINGS PER MD ORDER. PT TOLERATING BIPAP WELL. NO SOB, NO RESPIRATORY DISTRESS NOTED AT THIS TIME. WILL CONTINUE TO MONITOR. Addendum: 09/26/18 at 2020 by JARED STEVENSON RT Amended: Links added.
[2018-09-27 04:00] VITALS: BP 96/63
[2018-09-27 06:22] LABS: ALBUMIN 2.8 g/dL (3.4-5.0); CALCIUM, SERUM 8.8 mg/dL (8.5-10.1); PHOSPHORUS 4.6 mg/dL (2.5-4.9); POTASSIUM 4.7 mmol/L (3.5-5.1); TOTAL PROTEIN, SERUM 7.2 g/dL (6.4-8.2)
[2018-09-27 06:37] LABS: BASOPHILS # (AUTO) 0.1 /CMM (0.0-0.2); EOSINOPHILS % (AUTO) 3.7 % (0.0-6.0); HEMATOCRIT 34 % (39-51); HEMOGLOBIN 10.9 g/dL (13.5-17.5); LYMPHOCYTES # (AUTO) 0.9 /CMM (0.8-4.8); MEAN CORPUSCULAR HGB CONC 33 g/dl (31.0-36.0); MEAN CORPUSCULAR VOLUME 96 fL (80-96); MONOCYTES # (AUTO) 0.5 /CMM (0.1-1.30); NEUTROPHILS # (AUTO) 3.7 /CMM (1.8-8.9); NEUTROPHILS % (AUTO) 68.3 % (43.0-81.0); PLATELET COUNT (AUTO) 114 /CMM (150-450); RED BLOOD CELL COUNT(AUTO) 3.49 MIL/uL (4.5-6.0); WHITE BLOOD COUNT (AUTO) 5.4 K/uL (4.3-11.0)
--- NOTE | 2018-09-27 07:55 | NUR ---
ALERT, ORIENTED, DANGLING TO EAT BREAKFAST, BS RIGHT NOW 102. NO COVERAGE. CHECKED WITH HD PERSONNEL, NO DIALYSIS THIS AM.
[2018-09-27] MEDS: BLOOD SUGAR DIAGNOSTIC 1 EACH STRIP IN SCH ×4 (07:57→21:19)
[2018-09-27 08:00] VITALS: BP_SYST 90; BP_DIAS 50; BP_DIAS 54
[2018-09-27] MEDS: AZITHROMYCIN 250 MG TABLET PO SCH (08:58)
[2018-09-27] MEDS: VIT B CMPLX 3/FA/VIT C/BIOTIN 1 TAB TABLET PO SCH (08:58)
[2018-09-27] MEDS: SEVELAMER CARBONATE 0.8 GM POWD.PACK PO SCH ×3 (08:58→17:16)
[2018-09-27] MEDS: Fluoxetine 10 mg capsule PO SCH (08:58)
[2018-09-27] MEDS: AMIODARONE HCL 200 MG TABLET PO SCH (08:59)
[2018-09-27] MEDS: INSULIN LISPRO/ASPART 100 UNIT/ML CARTRIDGE SQ SCH ×3 (09:00→17:10)
[2018-09-27] MEDS: CEFTRIAXONE 1 G in IV D5W 50 ML IV SCH (14:27)
[2018-09-27 16:00] VITALS: BP 89/58
--- NOTE | 2018-09-27 16:33 | NUR ---
bp continues in the 80's-90', asymptomatic. no complaint of chest pain, no sob noted, denied dyspnea. son at bedside. bs tends to be in the low side, dr Pastrana made aware, insulin changed from 12 units bid, to 6units bid.
[2018-09-27 20:00] VITALS: BP 87/61
--- NOTE | 2018-09-27 20:00 | NUR ---
MS RN NOTES PT RECEIVED AOX4 AMBULATORY ABLE TO MAKE NEEDS KNOWN. PT ON BIPAP SETTINGS WELL TOLERATED BY PT. NO SOB. NO DISTRESS NOTED. VS STABLE AFEBRILE. DUE MEDS GIVE ORDERED. ALL NEEDS ATTENDED TO. CALL LIGHT WITHIN REACH. KEEP PT COMFORTABLE IN BED. WILL CONTINUE TO MONITOR.
--- NOTE | 2018-09-27 21:00 | NUR ---
MS RN NOTES BS @ 9 PM WAS 87 MG/DL. NO COVERAGE PER SLIDING SCALE. WILL CHECK BS IN AM.
[2018-09-27] MEDS: INSULIN REGULAR, HUMAN 100 UNIT/ML 3 ML VIAL SQ PRN (21:18)
[2018-09-28 04:00] VITALS: BP 101/64
--- NOTE | 2018-09-28 06:40 | NUR ---
MS RN NOTES PT STABLE. PT ON BIPAP. NO SOB NOTED. VS STABLE. NO DARREN NOTED. SAFETY MEASURES OBSERVED AT ALL TIMES. WILL ENDORSE TO AM NURSE FOR CONTINUITY OF CARE.
[2018-09-28] MEDS: BLOOD SUGAR DIAGNOSTIC 1 EACH STRIP IN SCH ×2 (08:20→11:35)
[2018-09-28] MEDS: SEVELAMER CARBONATE 0.8 GM POWD.PACK PO SCH ×2 (09:09→12:13)
[2018-09-28] MEDS: VIT B CMPLX 3/FA/VIT C/BIOTIN 1 TAB TABLET PO SCH (09:10)
[2018-09-28] MEDS: AMIODARONE HCL 200 MG TABLET PO SCH (09:10)
[2018-09-28] MEDS: AZITHROMYCIN 250 MG TABLET PO SCH (09:10)
[2018-09-28] MEDS: Fluoxetine 10 mg capsule PO SCH (09:10)
[2018-09-28] MEDS: INSULIN LISPRO/ASPART 100 UNIT/ML CARTRIDGE SQ SCH (09:12)
--- NOTE | 2018-09-28 09:13 | NUR ---
bs prior to breakfast, 88. finished the breakfast, 100%, scheduled insulin 6units given sq,
[2018-09-28] MEDS: INSULIN REGULAR, HUMAN 100 UNIT/ML 3 ML VIAL SQ PRN (11:49)
--- NOTE | 2018-09-28 11:50 | NUR ---
bs before lunch, 173, no coverage given secondary to patient in dialysis right now.
[2018-09-28 12:10] VITALS: BP 96/68
--- NOTE | 2018-09-28 15:59 | NUR ---
two daughters came to the room, to pick and shovel man the patient , discharged at 1600, alert, oriented, and no complaint. escorted to the lobby by our staff, patient discharged to home.. all discharge papers given with explainations in details, concerning home meds, and follow up care with his own dr, outpatient dialysis, scheduled for him MWF.
== END 2018-09-28 15:54 | disposition home or self-care (01) | DRG 280 ==
LOC: ER 15:07 → TELE 18:48 → TELE-TD 09-19 01:46 → TELE1 09-20 10:13 → MEDSG1 09-21 10:30 → TELE1 09-24 20:57 → MEDSG1 09-26 10:05
PROVIDERS: ADMIT Nurse Practitioner Acute Care; ATTEND Internal Medicine
PROC: 5A09557 Assistance with Respiratory Ventilation, Greater than 96 Consecutive Hours, Continuous Positive Airway Pressure (ICD-10-PCS; principal; 2018-09-19)
PROC: 5A1D70Z Performance of Urinary Filtration, Intermittent, Less than 6 Hours Per Day (ICD-10-PCS; 2018-09-19)
PROC: 5A1D70Z Performance of Urinary Filtration, Intermittent, Less than 6 Hours Per Day (ICD-10-PCS; 2018-09-20)
PROC: 5A1D70Z Performance of Urinary Filtration, Intermittent, Less than 6 Hours Per Day (ICD-10-PCS; 2018-09-21)
PROC: 5A1D70Z Performance of Urinary Filtration, Intermittent, Less than 6 Hours Per Day (ICD-10-PCS; 2018-09-22)
PROC: 5A1D70Z Performance of Urinary Filtration, Intermittent, Less than 6 Hours Per Day (ICD-10-PCS; 2018-09-23)
PROC: 5A1D70Z Performance of Urinary Filtration, Intermittent, Less than 6 Hours Per Day (ICD-10-PCS; 2018-09-24)
PROC: 5A1D70Z Performance of Urinary Filtration, Intermittent, Less than 6 Hours Per Day (ICD-10-PCS; 2018-09-25)
PROC: 5A1D70Z Performance of Urinary Filtration, Intermittent, Less than 6 Hours Per Day (ICD-10-PCS; 2018-09-26)
PROC: 5A1D70Z Performance of Urinary Filtration, Intermittent, Less than 6 Hours Per Day (ICD-10-PCS; 2018-09-28)
DX: I13.2 Hypertensive heart and chronic kidney disease with heart failure and with stage 5 chronic kidney disease, or end stage renal disease (principal); N18.6 End stage renal disease; I21.A1 Myocardial infarction type 2; I50.23 Acute on chronic systolic (congestive) heart failure; J96.91 Respiratory failure, unspecified with hypoxia; J18.9 Pneumonia, unspecified organism; D63.8 Anemia in other chronic diseases classified elsewhere; Z99.2 Dependence on renal dialysis; E11.22 Type 2 diabetes mellitus with diabetic chronic kidney disease; E87.5 Hyperkalemia; I25.10 Atherosclerotic heart disease of native coronary artery without angina pectoris; Z87.891 Personal history of nicotine dependence; Z79.4 Long term (current) use of insulin; G47.33 Obstructive sleep apnea (adult) (pediatric); E11.649 Type 2 diabetes mellitus with hypoglycemia without coma; Z98.890 Other specified postprocedural states; Z79.899 Other long term (current) drug therapy; Z95.810 Presence of automatic (implantable) cardiac defibrillator; Z99.81 Dependence on supplemental oxygen; Z68.33 Body mass index [BMI] 33.0-33.9, adult; I95.9 Hypotension, unspecified; I08.0 Rheumatic disorders of both mitral and aortic valves; E66.9 Obesity, unspecified
CPT/HCPCS: 36415; 36600; 71045-TC; 80048-TC; 80053-TC; 80061-TC; 82803-TC; 82947-TC; 82962-TC; 83735-TC; 84100-TC; 84484-TC; 85025-TC; 85610-TC; 85730-TC; 87081-TC; 90935-TC; 94660; 94760-TC; 94799-TC; A4216; G0378; J0456; J0696; J1644; J1815; J2270; J7060; P9047

== ENCOUNTER 2018-10-08 19:22 | Inpatient (IN) | payer MEDICARE, MEDICAID ==
[~2018-10-08] VITALS: Ht 165.1 cm; Wt 90.7 kg
[~2018-10-08 19:22] MED LIST changes: +INSU100V27 SQ; -INSU100V9 SQ
--- NOTE | 2018-10-08 19:58 | NUR ---
PT C/C LEFT SIDED PRESSURE LIKE CHEST PAIN 5/10 NON RADIATING SINCE 0700 W/ +NAUSEA AND SOB. SKIN WARM AND DRY. MILD S/S OF RESPIRATORY DISTRESS NOTED. PT PLACED ON [employer] COUNSELOR AND POX. PT SAFETY AND COMFORT MEASURES IN PLACE. COMPLETED PT EVAL. WILL CONTINUE TO MONITOR PT.
[2018-10-08] MEDS ORDERED: IV NS 0.9% 1,000 ML BAG IV ONE (20:00)
[2018-10-08] MEDS ORDERED: FUROSEMIDE 40 MG/4 ML VIAL ONE (20:18)
[2018-10-08] MEDS ORDERED: NITROGLYCERIN 0.4 MG/TAB BOTTLE ONE (20:18)
[2018-10-08] MEDS ORDERED: ASPIRIN 81 MG TAB.CHEW ONE (20:19)
[2018-10-08] MEDS ORDERED: ASPIRIN 81 MG TAB.CHEW PO ONE (20:30)
[2018-10-08] MEDS ORDERED: FUROSEMIDE 40 MG/4 ML VIAL IV ONE (20:30)
[2018-10-08] MEDS ORDERED: NITROGLYCERIN 0.4 MG/TAB BOTTLE SL ONE (20:30)
--- NOTE | 2018-10-08 20:36 | NUR ---
PT REFUSED LASIX STATING HIS PMD TOOK HIM OFF OF LASIX 3 MONTHS AGO. PT'S BP ROGER BOJORQUEZ MD MADE AWARE. PER , HOLD NITRO TABLETS. RT CALLED FOR CPAP
[2018-10-08 20:42] LABS: BASOPHILS # (AUTO) 0.1 /CMM (0.0-0.2); BASOPHILS % (AUTO) 2.5 % (0.0-2.0); EOSINOPHILS % (AUTO) 6.7 % (0.0-6.0); HEMATOCRIT 36 % (39-51); HEMOGLOBIN 11.7 g/dL (13.5-17.5); LYMPHOCYTES % (AUTO) 17.7 % (20.0-44.0); MEAN CORPUSCULAR HGB CONC 33 g/dl (31.0-36.0); MEAN CORPUSCULAR VOLUME 97 fL (80-96); MONOCYTES # (AUTO) 0.6 /CMM (0.1-1.30); MONOCYTES % (AUTO) 10.4 % (2.0-12.0); NEUTROPHILS # (AUTO) 3.4 /CMM (1.8-8.9); NEUTROPHILS % (AUTO) 62.7 % (43.0-81.0); PLATELET COUNT (AUTO) 143 /CMM (150-450); RED BLOOD CELL COUNT(AUTO) 3.67 MIL/uL (4.5-6.0); WHITE BLOOD COUNT (AUTO) 5.4 K/uL (4.3-11.0)
--- NOTE | 2018-10-08 20:49 | NUR ---
RT BEDSIDE PLACING PT ON CPAP
[2018-10-08 20:50] VITALS: BP 92/66
--- NOTE | 2018-10-08 21:29 | NUR ---
CALLED HOUSE [facility]P FOR TELE BED
[2018-10-08 21:46] LABS: CALCIUM, SERUM 9.1 mg/dL (8.5-10.1); CREATININE 5.7 mg/dL (0.6-1.3); POTASSIUM 5.4 mmol/L (3.5-5.1)
[2018-10-08 22:03] LABS: ALBUMIN 3.1 g/dL (3.4-5.0); BILIRUBIN,DIRECT 0.7 mg/dL (0.0-0.2); BILIRUBIN,TOTAL 1.3 mg/dL (0.2-1.0); TOTAL PROTEIN, SERUM 7.8 g/dL (6.4-8.2)
--- NOTE | 2018-10-08 22:13 | NUR ---
TELE BED [phone]
--- NOTE | 2018-10-08 22:21 | NUR ---
CALLED PANEL @2219, DR PASTRANA PAGED
--- NOTE | 2018-10-08 22:25 | NUR ---
Patient is resting comfortably in bed with eyes closed and still on cpap. Easily aroused. VSS
[2018-10-08] MEDS ORDERED: HEPARIN SODIUM, PORCINE 5000 UNITS/1 ML VIAL IV ONE (22:30)
[2018-10-08] MEDS ORDERED: HEPARIN INFUSION/D5W 500 ML IV PRN (22:30)
--- NOTE | 2018-10-08 22:50 | NUR ---
report given to mark perry for shania.
[2018-10-08 23:25] VITALS: BP 99/72
[2018-10-09] MEDS ORDERED: Z GUARD REMEDY 2 OZ OINT TP PRN (01:00)
[2018-10-09] MEDS ORDERED: MAG HYDROX/AL HYDROX/SIMETH 30 ML UDC PO PRN (01:00)
[2018-10-09] MEDS ORDERED: HYDROCODONE/APAP 5/325MG 1 EACH TABLET PO PRN (01:00)
[2018-10-09] MEDS ORDERED: ZOLPIDEM TARTRATE 5 MG TABLET PO PRN (01:00)
[2018-10-09] MEDS ORDERED: ONDANSETRON HCL/PF 4 MG/2 ML VIAL IVP PRN (01:00)
[2018-10-09] MEDS ORDERED: TRAZODONE 50 MG TABLET PO PRN (01:00)
[2018-10-09] MEDS ORDERED: NITROGLYCERIN 0.4 MG/TAB BOTTLE SL PRN (01:00)
[2018-10-09] MEDS ORDERED: MAGNESIUM HYDROXIDE 30 ML UDC PO PRN (01:00)
[2018-10-09 04:00] VITALS: BP 112/71
[2018-10-09] MEDS: ACETAMINOPHEN 325 MG TABLET PO PRN (04:48)
--- NOTE | 2018-10-09 06:42 | NUR ---
PSYCHOLOGY LECTURER NOTES AWAKE & RESPONSIVE. NOT IN ANY DISTRESS. NO SOB NOTED. DENIES ANY PAIN OR DISCOMFORT AT THIS TIME. ON TELE V PACING @ 80 WITH IV-HL PATENT & INTACT. MONITORED ACCORDINGLY. CALL LIGHT WITHIN REACH. BED IN LOWEST POSITION. SR UP X 2 FOR SAFETY. WILL ENDORSE TO NEXT SHIFT.
[2018-10-09 08:00] VITALS: BP 101/73
--- NOTE | 2018-10-09 08:00 | NUR ---
DYE BLENDER AM NOTES AWAKE & RESPONSIVE. NOT IN ANY DISTRESS. NO SOB NOTED. DENIES ANY PAIN OR DISCOMFORT AT THIS TIME. ON TELE SR WITH V PACING @ 82 WITH IV-HL PATENT & INTACT. MONITORED ACCORDINGLY. CALL LIGHT WITHIN REACH. BED IN LOWEST POSITION. SR UP X 2 FOR SAFETY.
--- NOTE | 2018-10-09 08:30 | NUR ---
INSULINS HELD DUE TO BREAKFAST MEAL TRAY ON HOLD-NPO AT THIS TIME TILL SEEN BY DR PAIZ.
[2018-10-09] MEDS: CARVEDILOL 3.125 MG TABLET PO SCH ×2 (09:00→16:54)
[2018-10-09] MEDS: SEVELAMER CARBONATE 0.8 GM POWD.PACK PO SCH ×3 (09:37→17:00)
[2018-10-09] MEDS: Fluoxetine 10 mg capsule PO SCH (09:37)
[2018-10-09] MEDS: FUROSEMIDE 100 MG/10 ML VIAL IV SCH (09:37)
[2018-10-09] MEDS: AMIODARONE HCL 200 MG TABLET PO SCH (09:40)
[2018-10-09] MEDS: INSULIN NPH, HUMAN ISOPHANE 100 UNIT/ML VIAL SQ SCH ×2 (11:08→21:00)
[2018-10-09] MEDS: INSULIN ASPART/LISPRO 100 UNIT/ML CARTRIDGE SQ SCH ×2 (11:13→17:00)
[2018-10-09] MEDS ORDERED: DEXTROSE 50%-WATER 50 ML DISP.SYRIN IV PRN (11:30)
[2018-10-09] MEDS ORDERED: INSULIN REGULAR, HUMAN 100 UNIT/ML 3 ML VIAL SQ PRN (11:30)
[2018-10-09] MEDS ORDERED: BLOOD SUGAR DIAGNOSTIC 1 EACH STRIP IN SCH (12:00)
--- NOTE | 2018-10-09 13:30 | NUR ---
HEMODIALYSIS DONE TODAY WITH 2.5 L OUTPUT WITH STABLE V/S.BP 105/60 HR 82.TOLERATED PROCEDURE WELL.ON BIPAP.DENIES ANY PAIN OR DISTRESS.CALL LIGHT WITHIN REACH.
[2018-10-09 16:00] VITALS: BP 121/80
[2018-10-09 16:37] LABS: ABG BASE EXCESS 2.1 mmol/L; ABG OXYGEN SATURATION 97.3 % (92.0-98.5); ABG PCO2 42.8 mmHg (35.0-45.0); ABG PH 7.417 (7.350-7.450); ABG PO2 105.5 mmHg (75.0-100.0); AaDO2 58.1 mmHg; COHb 0.8 % (0.5-1.5); MetHb 0.8 % (0.0-1.5); O2Hb 95.7 % (94.0-97.0); SITE, ABG Right Radial
[2018-10-09] MEDS: BLOOD SUGAR DIAGNOSTIC 1 EACH STRIP IN SCH ×2 (17:13→21:04)
--- NOTE | 2018-10-09 18:37 | NUR ---
PT SITTING ON THE EDGE OF THE BED LEANING ON THE SIDE TABLE EATING DINNER-WITH POOR APPETITE.DENIES ANY PAIN OR DISTRESS.VERBALIZED BEING TIRED.PT HAD DIALYSIS THIS AFTERNOON.CALL LIGHT PLACED WITHIN REACH.
--- NOTE | 2018-10-09 19:26 | NUR ---
MS RN PT RECEIVE IN BED SLEEPING 02 SAT 100% BIPAP ON, NOT IN ANY FORM OF DISTRESS, RESPIRATIONS EVEN AND UNLABORED, NO SOB NOTED, STABLE CONDITION. SAFETY MEASURES IN PLACE. WILL CONTINUE TO MONITOR. Addendum: 10/09/18 at 2156 by TUCKER RALPH RN CPAP ON NOT BIPAP
[2018-10-09 20:00] VITALS: BP 103/63
--- NOTE | 2018-10-09 21:07 | NUR ---
NON ADMIN OF NOVOLIN N DUE AT 2100 PT REFUSED MED PER PT HIS BLOOD SUGAR 68 MG/DL IS LOW. EXPLAINED RISKS AND BENEFITS. PM SNACKS PROVIDED
--- NOTE | 2018-10-10 05:19 | NUR ---
PATIENT RECEIVED ON CPAP 10 WITH FiO2 30% TOLERATING WITH NO DISTRESS/SOB. CPAP PLUGGED INTO RED OUTLET. ALARMS AUDIBLE AND VISIBLE. Addendum: 10/10/18 at 0521 by SWEETIE MERRILL RT Amended: Links added.
[2018-10-10] MEDS: BLOOD SUGAR DIAGNOSTIC 1 EACH STRIP IN SCH ×4 (05:47→21:06)
--- NOTE | 2018-10-10 06:26 | NUR ---
MS RN CLOSING NOTE AWAKE WATCHING TV, TOLERATING CPAP SETTINGS ORDERED THROUGHOUT THE NIGHT. 02 SAT AT 98% R.A. IN NO APPARENT DISTRESS OR DISCOMFORT AT THIS TIME. RESPIRATIONS EVEN AND UNLABORED. DENIES PAIN AND SOB AT THIS TIME. PATIENT KEPT CLEAN AND COMFORTABLE. ALL NEEDS ATTENDED. SAFETY MEASURES IN PLACE, BED IN LOW LOCKED POSITION, CALL LIGHT WITHIN EASY REACH. ENDORSE TO NEXT SHIFT CONTINUITY OF CARE.
[2018-10-10 07:14] LABS: BASOPHILS # (AUTO) 0.1 /CMM (0.0-0.2); EOSINOPHILS % (AUTO) 4.6 % (0.0-6.0); HEMATOCRIT 36 % (39-51); HEMOGLOBIN 11.4 g/dL (13.5-17.5); LYMPHOCYTES % (AUTO) 19.3 % (20.0-44.0); MEAN CORPUSCULAR HGB CONC 32 g/dl (31.0-36.0); MEAN CORPUSCULAR VOLUME 98 fL (80-96); MONOCYTES # (AUTO) 0.6 /CMM (0.1-1.30); MONOCYTES % (AUTO) 10.4 % (2.0-12.0); NEUTROPHILS # (AUTO) 3.4 /CMM (1.8-8.9); NEUTROPHILS % (AUTO) 63.7 % (43.0-81.0); PLATELET COUNT (AUTO) 97 /CMM (150-450); RED BLOOD CELL COUNT(AUTO) 3.62 MIL/uL (4.5-6.0); WHITE BLOOD COUNT (AUTO) 5.4 K/uL (4.3-11.0)
[2018-10-10 07:23] LABS: CREATININE 5.4 mg/dL (0.6-1.3); MAGNESIUM 2.2 mg/dL (1.8-2.4); PHOSPHORUS 5.2 mg/dL (2.5-4.9); POTASSIUM 4.8 mmol/L (3.5-5.1)
[2018-10-10 08:00] VITALS: BP 93/81
--- NOTE | 2018-10-10 08:00 | NUR ---
TAX ACCOUNTING ASSISTANT AM NOTES AWAKE,ALERT & RESPONSIVE. NOT IN ANY DISTRESS. NO SOB NOTED. DENIES ANY PAIN OR DISCOMFORT AT THIS TIME.WITH IV-HL PATENT & INTACT. WITH CPAP ON.MONITORED ACCORDINGLY. CALL LIGHT WITHIN REACH. BED IN LOWEST POSITION. SR UP X 2 FOR SAFETY.
--- NOTE | 2018-10-10 08:35 | NUR ---
RT NOTE PATIENT RECEIVED ON CPAP 10 WITH FiO2 30% TOLERATING WITH NO DISTRESS/SOB. CPAP PLUGGED INTO RED OUTLET. ALARMS AUDIBLE AND VISIBLE. PT REMOVES MASK AT HIS OWN DISCRETION MD MADE AWARE, WILL CONTINUE TO MONITOR CLOSELY
[2018-10-10] MEDS: AMIODARONE HCL 200 MG TABLET PO SCH (09:00)
[2018-10-10] MEDS: INSULIN NPH, HUMAN ISOPHANE 100 UNIT/ML VIAL SQ SCH ×2 (09:00→21:13)
[2018-10-10] MEDS: FUROSEMIDE 100 MG/10 ML VIAL IV SCH (09:00)
[2018-10-10] MEDS: CARVEDILOL 3.125 MG TABLET PO SCH ×2 (09:00→16:54)
[2018-10-10] MEDS: Fluoxetine 10 mg capsule PO SCH (09:06)
[2018-10-10] MEDS: SEVELAMER CARBONATE 0.8 GM POWD.PACK PO SCH ×3 (09:06→17:30)
[2018-10-10] MEDS: INSULIN ASPART/LISPRO 100 UNIT/ML CARTRIDGE SQ SCH ×2 (09:12→16:54)
--- NOTE | 2018-10-10 12:00 | NUR ---
HEMODIALYSIS PROCEDURE DONE WITH 1.5 ML OUTPUT WITH STABLE V/S. BP 100/70 HR 82
--- NOTE | 2018-10-10 13:58 | NUR ---
PT MAINTAINS O2 SAT OF 95% ON ROOM AIR WHILE SITTING ON THE CHAIR TALKING TO THE PHONE.
--- NOTE | 2018-10-10 19:28 | NUR ---
MS RN AWAKE IN BED WATCHING TV, STABLE. RESPIRATIONS EVEN AND UNLABORED, NO SOB NOTED,SAFETY MEASURES IN PLACE. WILL CONTINUE TO MONITOR.
[2018-10-10 20:00] VITALS: BP 93/58
[2018-10-11] MEDS: ACETAMINOPHEN 325 MG TABLET PO PRN (02:38)
[2018-10-11] MEDS: BLOOD SUGAR DIAGNOSTIC 1 EACH STRIP IN SCH ×4 (05:49→21:11)
--- NOTE | 2018-10-11 05:59 | NUR ---
MS RN CLOSING NOTE PT AWAKE SITTING ON THE EDGE OF THE BED, PT 02 SAT AT 94% R.A. TOLERATED CPAP SETTINGS ORDERED THROUGHOUT THE NIGHT, STABLE, NO DISTRESS. RESPIRATIONS EVEN AND UNLABORED. DENIES PAIN AND SOB NEEDS ATTENDED AND ANTICIPATED. KEPT CLEAN AND DRY, COMFORT. SAFETY MEASURES IN PLACE, BED IN LOW LOCKED POSITION, CALL LIGHT WITHIN EASY REACH. ENDORSE TO NEXT SHIFT CONTINUITY OF CARE.
[2018-10-11 08:00] VITALS: BP 95/69
[2018-10-11] MEDS: SEVELAMER CARBONATE 0.8 GM POWD.PACK PO SCH ×3 (08:04→17:37)
[2018-10-11] MEDS: Fluoxetine 10 mg capsule PO SCH (08:04)
[2018-10-11] MEDS: AMIODARONE HCL 200 MG TABLET PO SCH (09:00)
[2018-10-11] MEDS: INSULIN ASPART/LISPRO 100 UNIT/ML CARTRIDGE SQ SCH ×2 (09:00→17:00)
[2018-10-11] MEDS: FUROSEMIDE 100 MG/10 ML VIAL IV SCH (09:00)
[2018-10-11] MEDS: INSULIN NPH, HUMAN ISOPHANE 100 UNIT/ML VIAL SQ SCH ×2 (09:00→21:12)
[2018-10-11] MEDS: CARVEDILOL 3.125 MG TABLET PO SCH ×2 (09:00→17:00)
--- NOTE | 2018-10-11 09:00 | NUR ---
RN MS NOTES INSULIN NOT ADMINISTERED, PT'S BS THIS MORNING IS 84, RECHECKED 1 HOUR AFTER BREAKFAST 166, WILL CONTINUE TO MONITOR.
--- NOTE | 2018-10-11 09:37 | NUR ---
RN MS NOTES Patient received on 3 L per minute o2, no sob or ventilatory distress noted. Patient is able to ambulate and move around by himself, patients blood glucose level is 166 around 1930.
[2018-10-11 16:00] VITALS: BP 93/66
--- NOTE | 2018-10-11 18:35 | NUR ---
RN MS NOTES Patient was on dialysis today, 1.5 L was removed, patient tolerated procedure well. Blood sugar check done, patient refused insulin. Patient ambulates inside the room with slow and steady gait. Patient eats and tolerates diet well.
--- NOTE | 2018-10-11 19:21 | NUR ---
MS RN PT AWAKE SITTING IN THE CHAIR, RESPIRATIONS EVEN AND UNLABORED, NO SOB NOTED, NO DISTRESS, SAFETY MEASURES IN PLACE. WILL CONTINUE TO MONITOR.
[2018-10-11 20:00] VITALS: BP 97/71
[2018-10-12] MEDS: ACETAMINOPHEN 325 MG TABLET PO PRN (01:52)
--- NOTE | 2018-10-12 03:58 | NUR ---
ms rn pt complaining generalized pain 5/10 per pt request ask for po norco 5/325 mg. vs taken 102/67 p 81 r 19 t 98.4 02 sat 95% will continue to monitor
[2018-10-12] MEDS: BLOOD SUGAR DIAGNOSTIC 1 EACH STRIP IN SCH ×2 (06:07→11:54)
--- NOTE | 2018-10-12 06:09 | NUR ---
MS RN CLOSING NOTE AWAKE WATCHING TV, 02 SAT AT 96%, STABLE AND NOT IN DISTRESS. TOLERATED CPAP SETTINGS ORDERED THROUGHOUT THE NIGHT. NO COMPLAIN OF PAIN. KEPT CLEAN AND DRY AND COMFORTABLE, NEEDS ATTENDED AND ANTICIPATED, SAFETY MEASURES AT ALL TIMES. WILL ENDORSE TO NEXT SHIFT POC.
[2018-10-12 07:20] LABS: BASOPHILS % (AUTO) 0.7 % (0.0-2.0); EOSINOPHILS % (AUTO) 4.7 % (0.0-6.0); HEMATOCRIT 34 % (39-51); LYMPHOCYTES # (AUTO) 1.1 /CMM (0.8-4.8); MEAN CORPUSCULAR HGB CONC 32 g/dl (31.0-36.0); MEAN CORPUSCULAR VOLUME 98 fL (80-96); MONOCYTES # (AUTO) 0.6 /CMM (0.1-1.30); MONOCYTES % (AUTO) 11.3 % (2.0-12.0); NEUTROPHILS # (AUTO) 3.7 /CMM (1.8-8.9); NEUTROPHILS % (AUTO) 64.3 % (43.0-81.0); PLATELET COUNT (AUTO) 107 /CMM (150-450); WHITE BLOOD COUNT (AUTO) 5.7 K/uL (4.3-11.0)
[2018-10-12 07:35] LABS: CREATININE 5.3 mg/dL (0.6-1.3); POTASSIUM 5.1 mmol/L (3.5-5.1)
[2018-10-12] MEDS: SEVELAMER CARBONATE 0.8 GM POWD.PACK PO SCH ×2 (07:38→12:20)
--- NOTE | 2018-10-12 07:49 | NUR ---
Patient awake and alert, patient is able to go to the bathroom with steady gait, patient eats breakfast with no assistance needed. No pain mentioned by the patient, call light within reach. Needs attended and anticipated, safety measures at all times.
[2018-10-12 08:00] VITALS: BP 92/70
[2018-10-12] MEDS: FUROSEMIDE 100 MG/10 ML VIAL IV SCH (08:39)
[2018-10-12] MEDS: AMIODARONE HCL 200 MG TABLET PO SCH (08:40)
[2018-10-12] MEDS: Fluoxetine 10 mg capsule PO SCH (08:40)
[2018-10-12] MEDS: INSULIN ASPART/LISPRO 100 UNIT/ML CARTRIDGE SQ SCH (08:49)
[2018-10-12] MEDS: INSULIN NPH, HUMAN ISOPHANE 100 UNIT/ML VIAL SQ SCH (08:49)
--- NOTE | 2018-10-12 08:50 | NUR ---
RN MS NOTES Patient refused insulin at this time, explained importance of receiving insulin in a timely manner. Patient still refused to take insulin. Patient awake, comfortable, and alert, patient is not showing any distress.
[2018-10-12] MEDS: CARVEDILOL 3.125 MG TABLET PO SCH (09:00)
[2018-10-12 12:00] VITALS: BP 100/77
--- NOTE | 2018-10-12 15:34 | NUR ---
RN MS NOTES Patient awake, alert and oriented. No complaints of pain or SOB. Tolerating room air well, completed dialysis, tolerated well. Seen by Dr. Chowdhury, discharge order given. Discharge medications instructions provided to patient and daughter Remelie. Verbalized understanding, no bleeding noted to the dialysis catheter. Belongings accounted for, assisted by REVIEW RN to the hospital lobby. Left with private care with daughter, in stable condition.
== END 2018-10-12 15:15 | disposition home or self-care (01) | DRG 291 ==
LOC: ER 19:25 → TELE 22:32 → MED 10-09 09:49 → TELE 10-11 11:37 → MED 10-11 15:58
PROC: 5A09457 Assistance with Respiratory Ventilation, 24-96 Consecutive Hours, Continuous Positive Airway Pressure (ICD-10-PCS; 2018-10-08)
PROC: 5A1D70Z Performance of Urinary Filtration, Intermittent, Less than 6 Hours Per Day (ICD-10-PCS; principal; 2018-10-09)
PROC: 5A1D70Z Performance of Urinary Filtration, Intermittent, Less than 6 Hours Per Day (ICD-10-PCS; 2018-10-10)
PROC: 5A1D70Z Performance of Urinary Filtration, Intermittent, Less than 6 Hours Per Day (ICD-10-PCS; 2018-10-11)
PROC: 5A1D70Z Performance of Urinary Filtration, Intermittent, Less than 6 Hours Per Day (ICD-10-PCS; 2018-10-12)
DX: I13.2 Hypertensive heart and chronic kidney disease with heart failure and with stage 5 chronic kidney disease, or end stage renal disease (principal); N18.6 End stage renal disease; J96.01 Acute respiratory failure with hypoxia; I50.23 Acute on chronic systolic (congestive) heart failure; J98.11 Atelectasis; E66.2 Morbid (severe) obesity with alveolar hypoventilation; J84.9 Interstitial pulmonary disease, unspecified; E11.22 Type 2 diabetes mellitus with diabetic chronic kidney disease; Z99.2 Dependence on renal dialysis; D63.8 Anemia in other chronic diseases classified elsewhere; E87.5 Hyperkalemia; Z87.891 Personal history of nicotine dependence; Z95.810 Presence of automatic (implantable) cardiac defibrillator; D64.9 Anemia, unspecified; I42.9 Cardiomyopathy, unspecified; Z68.33 Body mass index [BMI] 33.0-33.9, adult; E78.5 Hyperlipidemia, unspecified; Z79.4 Long term (current) use of insulin; I95.89 Other hypotension
CPT/HCPCS: 36415; 36600; 71045-TC; 80048-TC; 80061-TC; 80076-TC; 82803-TC; 82962-TC; 83735-TC; 83880; 84100-TC; 84484-TC; 85025-TC; 85730-TC; 87081-TC; 90935-TC; G0378; J1815; J1940; J7030

== ENCOUNTER 2018-10-19 13:19 | Inpatient (IN) | payer MEDICAID, MEDICARE ==
[~2018-10-19] VITALS: Ht 162.6 cm; Wt 92.5 kg
--- NOTE | 2018-10-19 13:43 | NUR ---
BIB daughter, c/o SOB. HD done yesterday. No c/o pain at this time. 91% on RA, placed on 2LPM of O2 via NC. LFA g20 PIV in. With RCW HD cath.
[2018-10-19 13:52] LABS: BASOPHILS # (AUTO) 0.1 /CMM (0.0-0.2); BASOPHILS % (AUTO) 2.2 % (0.0-2.0); EOSINOPHILS % (AUTO) 3.7 % (0.0-6.0); HEMATOCRIT 36 % (39-51); HEMOGLOBIN 11.5 g/dL (13.5-17.5); LYMPHOCYTES # (AUTO) 0.9 /CMM (0.8-4.8); LYMPHOCYTES % (AUTO) 15.3 % (20.0-44.0); MEAN CORPUSCULAR HGB CONC 32 g/dl (31.0-36.0); MEAN CORPUSCULAR VOLUME 100 fL (80-96); MONOCYTES # (AUTO) 0.7 /CMM (0.1-1.30); MONOCYTES % (AUTO) 12.1 % (2.0-12.0); NEUTROPHILS % (AUTO) 66.7 % (43.0-81.0); PLATELET COUNT (AUTO) 112 /CMM (150-450); RED BLOOD CELL COUNT(AUTO) 3.58 MIL/uL (4.5-6.0); WHITE BLOOD COUNT (AUTO) 6.1 K/uL (4.3-11.0)
[2018-10-19 14:00] LABS: CALCIUM, SERUM 9.3 mg/dL (8.5-10.1); POTASSIUM 4.9 mmol/L (3.5-5.1)
[2018-10-19 14:12] LABS: BILIRUBIN,DIRECT 0.8 mg/dL (0.0-0.2); BILIRUBIN,TOTAL 1.3 mg/dL (0.2-1.0); TOTAL PROTEIN, SERUM 7.6 g/dL (6.4-8.2)
[2018-10-19 14:25] VITALS: BP 108/91
[2018-10-19] MEDS ORDERED: ALBUTEROL FS 2.5 MG/3 ML VIAL.NEB NEB ONE (14:30)
[2018-10-19] MEDS ORDERED: IPRATROPIUM NEB FS 0.5 MG/2.5 ML AMPUL.NEB NEB ONE (14:30)
--- NOTE | 2018-10-19 14:49 | NUR ---
Report given to Tamika. On Bipap, placed by RT.
[2018-10-19] MEDS ORDERED: ALBUTEROL FS 2.5 MG/3 ML VIAL.NEB ONE (15:00)
[2018-10-19] MEDS ORDERED: IPRATROPIUM NEB FS 0.5 MG/2.5 ML AMPUL.NEB ONE (15:00)
--- NOTE | 2018-10-19 15:00 | NUR ---
ENRIQUE BEHAVIORAL HEALTH WORKER NOTES RECEIVED PT FROM ER TO ROOM 111-1 VIA WHEELCHAIR.ALERT/ORIENTED X4.WITH BIPAP,FEELS SOB.ON TELE HE IS 70;S WITH AV PACING.IV LINE IS ON LEFT FA G18,SITE IS CLEAN,DRY AND INTACT.NO INFILTRATION NOTED.CAN AMBULATE WELL WITHOUT ASSISTANCE.DIALYSIS CATH IS ON RIGHT CHEST WALL.PT REQUESTING TO SIT IN THE CHAIR.CALL LIGHT IS WITHIN REACH.
--- NOTE | 2018-10-19 15:11 | NUR ---
Transferred via ACLS protocol. Tolerated 2LPM of O2 via NC. Able to ambulate. Belongings with the patient.
[2018-10-19] MEDS ORDERED: MAG HYDROX/AL HYDROX/SIMETH 30 ML UDC PO PRN (15:30)
[2018-10-19] MEDS ORDERED: MAGNESIUM HYDROXIDE 30 ML UDC PO PRN (15:30)
[2018-10-19] MEDS ORDERED: ZOLPIDEM TARTRATE 5 MG TABLET PO PRN (15:30)
[2018-10-19] MEDS ORDERED: ONDANSETRON HCL/PF 4 MG/2 ML VIAL IVP PRN (15:30)
[2018-10-19] MEDS ORDERED: Z GUARD REMEDY 2 OZ OINT TP PRN (15:30)
[2018-10-19 16:00] VITALS: BP 114/66
[2018-10-19 16:22] LABS: ABG BASE EXCESS -0.9 mmol/L; ABG OXYGEN SATURATION 98.3 % (92.0-98.5); ABG PCO2 38.3 mmHg (35.0-45.0); ABG PH 7.406 (7.350-7.450); ABG PO2 151.4 mmHg (75.0-100.0); AaDO2 53.6 mmHg; COHb 0.3 % (0.5-1.5); MetHb 0.9 % (0.0-1.5); O2Hb 97.1 % (94.0-97.0); SITE, ABG Left Brachial; VENT MODE, BG BIPAP 15/5 35%
--- NOTE | 2018-10-19 19:00 | NUR ---
ENRIQUE RN NOTES HD HAS DONE,TOLERATING WELL.WITH BIPAP.LYING ON BED.NO SIGNIFICANT CHANGES NOTED IN THE SHIFT.ENDORSED TO INDUSTRIAL ENGINEERING ANALYST RN FOR DARREN.
--- NOTE | 2018-10-19 19:27 | NUR ---
TD RN NOTES RECEIVED PT ON BED. SLEEPING. ON TELE MONITOR V PACING 78. ON BIPAP NO RESPIRATORY DISTRESS NOTED. IV ACCESS LFA G 18 PATENT AND INTACT. HD ACCESS ON RIGHT CHEST WALL NO BLEEDING NOTED. HEAD OF BED ELEVATED. SIDE RAILS UP. CALL LIGHT WITHIN REACH. BED ALARM ON. WILL CONTINUE TO MONITOR PT CLOSELY.
[2018-10-19] MEDS: ALBUTEROL FS 2.5 MG/0.5 ML VIAL.NEB NEB SCH ×2 (19:36→23:28)
[2018-10-19] MEDS: IPRATROPIUM NEB FS 0.5 MG/2.5 ML AMPUL.NEB NEB SCH ×2 (19:36→23:28)
--- NOTE | 2018-10-19 19:36 | NUR ---
RCVD PT ON BIPAP 15/5, RATE 15, FIO2 35%. BIPAP PLUGGED INTO RED OUTLET, ALARMS ON AND AUDIBLE. NO RESPIRATORY DISTRESS NOTED AT THIS TIME. WILL CONTINUE TO MONITOR THE PT.
--- NOTE | 2018-10-19 19:52 | NUR ---
TD RN NOTES BS CHECKED 111MG/DL
[2018-10-19 21:00] VITALS: BP 93/62
[2018-10-20 01:00] VITALS: BP 95/64
[2018-10-20 04:00] VITALS: BP 100/77
[2018-10-20] MEDS: IPRATROPIUM NEB FS 0.5 MG/2.5 ML AMPUL.NEB NEB SCH ×6 (04:16→23:48)
[2018-10-20] MEDS: ALBUTEROL FS 2.5 MG/0.5 ML VIAL.NEB NEB SCH ×6 (04:16→23:48)
[2018-10-20 06:50] LABS: BASOPHILS # (AUTO) 0.1 /CMM (0.0-0.2); BASOPHILS % (AUTO) 1.9 % (0.0-2.0); EOSINOPHILS % (AUTO) 2.7 % (0.0-6.0); HEMATOCRIT 35 % (39-51); HEMOGLOBIN 11.3 g/dL (13.5-17.5); MEAN CORPUSCULAR HGB CONC 32 g/dl (31.0-36.0); MEAN CORPUSCULAR VOLUME 98 fL (80-96); MONOCYTES # (AUTO) 0.8 /CMM (0.1-1.30); MONOCYTES % (AUTO) 11.1 % (2.0-12.0); NEUTROPHILS # (AUTO) 4.8 /CMM (1.8-8.9); NEUTROPHILS % (AUTO) 69.3 % (43.0-81.0); PLATELET COUNT (AUTO) 100 /CMM (150-450); RED BLOOD CELL COUNT(AUTO) 3.59 MIL/uL (4.5-6.0); WHITE BLOOD COUNT (AUTO) 6.9 K/uL (4.3-11.0)
[2018-10-20 07:23] LABS: CALCIUM, SERUM 9.7 mg/dL (8.5-10.1); MAGNESIUM 2.2 mg/dL (1.8-2.4); PHOSPHORUS 6.5 mg/dL (2.5-4.9); POTASSIUM 5.2 mmol/L (3.5-5.1)
--- NOTE | 2018-10-20 07:24 | NUR ---
RN OPENING NOTE PT WAS RECEIVED IN BED AT LOWEST AND LOCKED POSITION WITH SIDE RAILS UP X2, A/O XX4, BREATHING EVEN AND UNLABORED ON BIPAP, NO S/S OF DISTRESS NOTED AT THIS TIME, NOTED TO BE ON AV PACING AT THIS TIME, IV IS PATENT AND INTACT, SAFETY PRECAUTIONS IN PLACE, CALL LIGHT WITHIN REACH, WILL MONITOR ACCORDINGLY.
--- NOTE | 2018-10-20 07:33 | NUR ---
TD RN NOTES NO ACUTE CHANGES NOTED DURING THE SHIFT. PROVIDED COMFORT AND SAFETY. ENDORSE PT NO MED RECON YET. WILL ENDORSE TO THE AM NURSE FOR CONTINUITY OF CARE.
[2018-10-20 08:00] VITALS: BP 102/71
[2018-10-20 12:00] VITALS: BP 97/72
[2018-10-20] MEDS ORDERED: TRAZODONE 50 MG TABLET PO PRN (13:30)
[2018-10-20] MEDS ORDERED: NITROGLYCERIN 0.4 MG/TAB BOTTLE SL PRN (13:30)
[2018-10-20] MEDS ORDERED: DEXTROSE 50%-WATER 50 ML DISP.SYRIN IVP PRN (14:30)
[2018-10-20 16:00] VITALS: BP 97/80
[2018-10-20] MEDS: CARVEDILOL 3.125 MG TABLET PO SCH (17:00)
[2018-10-20] MEDS: BLOOD SUGAR DIAGNOSTIC 1 EACH STRIP IN SCH ×2 (18:28→22:23)
[2018-10-20] MEDS: SEVELAMER CARBONATE 0.8 GM POWD.PACK PO SCH (18:30)
--- NOTE | 2018-10-20 19:00 | NUR ---
RN MS OPENING NOTES RECEIVED PATIENT IN BED AWAKE ALERT AND ORIENTED X 4, ABLE TO MAKE NEEDS KNOWN, VERBALLY RESPONSIVE, PER PATIENT WISHES TO BE ON BIPAP NO RESPIRATORY DISTRESS, RESPIRATIONS EVEN AND UNLABORED WITH EQUAL RISE AND FALL OF CHEST, DENIES ANY PAIN OR DISCOMFORT, IV SITE LEFT FA #18G SL , NO REDNESS, NO INFILTRATION, INTACT AND PATENT, ORIENTED TO STAFF AND CALL LIGHT AND KEPT WITHIN REACH, SAFETY PRECAUTIONS IN PLACE, LOW BED AND LOCKED, ALL NEEDS ATTENDED AT THIS TIME, WILL CONTINUE TO MONITOR AND ADDRESS NEEDS REMAINS COMFORTABLE AT THIS TIME.
[2018-10-20 19:11] LABS: ABG BASE EXCESS -0.8 mmol/L; ABG OXYGEN SATURATION 90.3 % (92.0-98.5); ABG PCO2 40.8 mmHg (35.0-45.0); ABG PO2 65.4 mmHg (75.0-100.0); AaDO2 35.5 mmHg; COHb 0.7 % (0.5-1.5); MetHb 0.4 % (0.0-1.5); O2Hb 89.3 % (94.0-97.0); SITE, ABG Left Radial; VENT MODE, BG ROOM AIR
[2018-10-20 20:00] VITALS: BP 99/74
[2018-10-20] MEDS ORDERED: INSULIN ASPART/LISPRO 100 UNIT/ML CARTRIDGE SQ SCH (21:00)
[2018-10-20] MEDS ORDERED: INSULIN NPH, HUMAN ISOPHANE 100 UNIT/ML VIAL SQ SCH (21:00)
--- NOTE | 2018-10-20 21:15 | NUR ---
RN MS NOTES MADE AWARE OF ABG RESULTS NO NEW ORDERS AT THIS TIME. PATIENT REMAINS COMFORTABLE NOT IN DISTRESS WISHES TO KEEP BIPAP ON.
[2018-10-20] MEDS: INSULIN NPH, HUMAN ISOPHANE 100 UNIT/ML VIAL SQ SCH (22:25)
[2018-10-21] MEDS: IPRATROPIUM NEB FS 0.5 MG/2.5 ML AMPUL.NEB NEB SCH ×6 (03:52→23:30)
[2018-10-21] MEDS: ALBUTEROL FS 2.5 MG/0.5 ML VIAL.NEB NEB SCH ×6 (03:53→23:30)
[2018-10-21 04:00] VITALS: BP 90/70
--- NOTE | 2018-10-21 06:25 | NUR ---
RN MS CLOSING NOTES PATIENT IN BED AWAKE ALERT AND ORIENTED X 4, ABLE TO MAKE NEEDS KNOWN, VERBALLY RESPONSIVE, PER PATIENT WISHES TO BE ON BIPAP NO RESPIRATORY DISTRESS, RESPIRATIONS EVEN AND UNLABORED WITH EQUAL RISE AND FALL OF CHEST, DENIES ANY PAIN OR DISCOMFORT, IV SITE LEFT FA #18G SL , NO REDNESS, NO INFILTRATION, INTACT AND PATENT, CALL LIGHT KEPT WITHIN REACH, SAFETY PRECAUTIONS IN PLACE, LOW BED AND LOCKED, ALL NEEDS ATTENDED AT THIS TIME, WILL CONTINUE TO MONITOR AND ENDORSE TO NEXT SHIFT REMAINS COMFORTABLE AT THIS TIME.NO CHANGE THROUGHOUT SHIFT.
[2018-10-21] MEDS: BLOOD SUGAR DIAGNOSTIC 1 EACH STRIP IN SCH ×4 (07:36→21:37)
[2018-10-21 07:40] LABS: BASOPHILS # (AUTO) 0.1 /CMM (0.0-0.2); BASOPHILS % (AUTO) 1.8 % (0.0-2.0); EOSINOPHILS % (AUTO) 5.2 % (0.0-6.0); HEMATOCRIT 34 % (39-51); HEMOGLOBIN 11.2 g/dL (13.5-17.5); LYMPHOCYTES % (AUTO) 14.8 % (20.0-44.0); MEAN CORPUSCULAR HGB CONC 33 g/dl (31.0-36.0); MEAN CORPUSCULAR VOLUME 98 fL (80-96); MONOCYTES # (AUTO) 0.7 /CMM (0.1-1.30); MONOCYTES % (AUTO) 11.2 % (2.0-12.0); NEUTROPHILS # (AUTO) 4.3 /CMM (1.8-8.9); PLATELET COUNT (AUTO) 83 /CMM (150-450); WHITE BLOOD COUNT (AUTO) 6.4 K/uL (4.3-11.0)
--- NOTE | 2018-10-21 07:57 | NUR ---
MS/RN - Assessment Patient awake, A/O x 4, wishes to be on continuous bipap for comfort, denies pain at this time. Saline lock on the LFA is patent, intact, with no signs of infiltration. Labs reviewed, platelet downtrending, no active bleeding seen. Patient ambulatory with steady gait. Patient educated on plan of care. Will continue with current medical management.
[2018-10-21 08:00] VITALS: BP 95/67
[2018-10-21] MEDS: Fluoxetine 10 mg capsule PO SCH (08:08)
[2018-10-21] MEDS: SEVELAMER CARBONATE 0.8 GM POWD.PACK PO SCH ×3 (08:08→17:30)
[2018-10-21] MEDS: CARVEDILOL 3.125 MG TABLET PO SCH ×2 (08:09→16:13)
[2018-10-21] MEDS: AMIODARONE HCL 200 MG TABLET PO SCH (08:09)
[2018-10-21] MEDS: INSULIN NPH, HUMAN ISOPHANE 100 UNIT/ML VIAL SQ SCH ×2 (08:11→21:00)
[2018-10-21 08:21] LABS: ALBUMIN 3.1 g/dL (3.4-5.0); BILIRUBIN,DIRECT 0.7 mg/dL (0.0-0.2); BILIRUBIN,TOTAL 1.5 mg/dL (0.2-1.0); CALCIUM, SERUM 9.3 mg/dL (8.5-10.1); MAGNESIUM 2.3 mg/dL (1.8-2.4); PHOSPHORUS 7.4 mg/dL (2.5-4.9); POTASSIUM 5.1 mmol/L (3.5-5.1); TOTAL PROTEIN, SERUM 7.8 g/dL (6.4-8.2)
[2018-10-21 16:00] VITALS: BP 92/65
--- NOTE | 2018-10-21 16:48 | NUR ---
MS/RN - End of shift summary No new events seen, on oxygen at 2lpm via NC, bipap on standby for comfort, denies pain, blood glucose well controlled. HD treatment done today, 2.0 liters out, tolerated well. All needs attended. Daughter at bedside updated on patient's condition. Will continue with current medical management.
[2018-10-21 20:00] VITALS: BP 87/62
--- NOTE | 2018-10-21 21:04 | NUR ---
FOUND PT OFF BIPAP. PT IS ALERT AND KNOWS HOW TO TURN ON AND OFF BIPAP. HE WANTS THE BIPAP OFF AT TIME. PT IS ON 2LNC SP02 99% HR 74. WILL CONT TO MONITOR PT.
--- NOTE | 2018-10-21 22:09 | NUR ---
MED NOTE: INSULIN HELD PT POC GLUCOSE 104. WILL CONTINUE TO MONITOR.
[2018-10-22] MEDS: ACETAMINOPHEN 325 MG TABLET PO PRN (00:44)
[2018-10-22] MEDS: IPRATROPIUM NEB FS 0.5 MG/2.5 ML AMPUL.NEB NEB SCH ×7 (02:38→23:16)
[2018-10-22] MEDS: ALBUTEROL FS 2.5 MG/0.5 ML VIAL.NEB NEB SCH ×7 (02:38→23:16)
[2018-10-22 04:00] VITALS: BP 91/68
[2018-10-22] MEDS: HYDROCODONE/APAP 5/325MG 1 EACH TABLET PO PRN ×2 (04:18→08:33)
--- NOTE | 2018-10-22 04:27 | NUR ---
PATIENT WANTED TO BE BACK ON BIPAP AT THIS TIME. WILL CONT TO MONITOR PT. Addendum: 10/22/18 at 0506 by PAUL MULLER RT Amended: Links added.
--- NOTE | 2018-10-22 07:15 | NUR ---
MS/RN OPENING NOTE Received report from pm nurse.Patient awake, A/O x 4, on continuous bipap for comfort,he stated that he was not able to sleep last night and start using BIPAP in division manager. c/o pain in R shoulder at this time.he said its not new pain .he experienced before at home . Saline lock on the LFA is patent, intact, with no signs of infiltration. Patient ambulatory with steady gait. Patient educated on plan of care. bed is locked and in low position.call light in reach.srx2.will continue to monitor.
[2018-10-22 07:25] LABS: BASOPHILS # (AUTO) 0.1 /CMM (0.0-0.2); BASOPHILS % (AUTO) 2.6 % (0.0-2.0); EOSINOPHILS % (AUTO) 6.6 % (0.0-6.0); HEMATOCRIT 34 % (39-51); LYMPHOCYTES % (AUTO) 17.3 % (20.0-44.0); MEAN CORPUSCULAR HGB CONC 32 g/dl (31.0-36.0); MEAN CORPUSCULAR VOLUME 97 fL (80-96); MONOCYTES # (AUTO) 0.7 /CMM (0.1-1.30); MONOCYTES % (AUTO) 13.5 % (2.0-12.0); NEUTROPHILS # (AUTO) 3.3 /CMM (1.8-8.9); PLATELET COUNT (AUTO) 75 /CMM (150-450); RED BLOOD CELL COUNT(AUTO) 3.48 MIL/uL (4.5-6.0); WHITE BLOOD COUNT (AUTO) 5.5 K/uL (4.3-11.0)
[2018-10-22 07:31] LABS: CALCIUM, SERUM 8.9 mg/dL (8.5-10.1); CREATININE 6.4 mg/dL (0.6-1.3); POTASSIUM 5.5 mmol/L (3.5-5.1)
[2018-10-22 08:00] VITALS: BP 94/65
[2018-10-22] MEDS: SEVELAMER CARBONATE 0.8 GM POWD.PACK PO SCH ×3 (08:31→17:01)
[2018-10-22] MEDS: Fluoxetine 10 mg capsule PO SCH (08:31)
[2018-10-22] MEDS: INSULIN NPH, HUMAN ISOPHANE 100 UNIT/ML VIAL SQ SCH ×2 (08:43→21:38)
[2018-10-22] MEDS: BLOOD SUGAR DIAGNOSTIC 1 EACH STRIP IN SCH ×4 (08:44→21:36)
[2018-10-22 08:47] LABS: EOSINOPHILS % (MANUAL) 5 % (0-4); LYMPHOCYTES % (MANUAL) 16 % (16-48); MONOCYTES % (MANUAL) 7 % (0-11.0); NEUTROPHILS % (MANUAL) 72 (42-76)
[2018-10-22] MEDS: CARVEDILOL 3.125 MG TABLET PO SCH ×2 (09:00→17:00)
[2018-10-22] MEDS: AMIODARONE HCL 200 MG TABLET PO SCH (09:52)
--- NOTE | 2018-10-22 11:15 | NUR ---
MS RN NOTE SEEN BY UPDATED ABOUT PATENT CONDITION.GOT NEW ORDERS.WILL CONTINUE TO MONITOR.
--- NOTE | 2018-10-22 11:31 | NUR ---
MS RN NOTE SEEN BY ,UPDATED ABOUT PATIENT CONDITION.GOT NEW ORDER FOR PRN SLEEPING PILL PER PATIENT REQUEST.WILL CONTINUE TO MONITOR.
[2018-10-22] MEDS ORDERED: ZOLPIDEM TARTRATE 5 MG TABLET PO PRN (12:00)
[2018-10-22 16:00] VITALS: BP 96/66
[2018-10-22 16:16] VITALS: BP 96/66
--- NOTE | 2018-10-22 17:00 | NUR ---
MS ILEANA NOTE COREG NOT ADMINISTERED BECAUSE OF LOW BP IN AM AND 1700 DOSE.
--- NOTE | 2018-10-22 18:48 | NUR ---
MS/RN CLOSING NOTE .Patient awake, A/O x 4, Saline lock on the LFA is patent, intact, with no signs of infiltration. Patient ambulatory with steady gait.on daily HD .HD done 2000 ml out.patient is stable. bed is locked and in low position.call light in reach.srx2.will endorse to pm nurse for shania.
[2018-10-22 20:00] VITALS: BP 99/76
--- NOTE | 2018-10-22 20:00 | NUR ---
ENRIQUE RN OPENING NOTE Received report from am nurse.Patient awake, A/O x 4, on continuous bipap for comfort. Saline lock iv line on the LFA is patent, intact, with no signs of infiltration. Patient ambulatory with steady gait. no complaints of pain at this time, no sob no chest pain at this time.Patient educated on plan of care. bed is locked and in low position.call light in reach.srx2.will continue to monitor.
[2018-10-23] MEDS: ALBUTEROL FS 2.5 MG/0.5 ML VIAL.NEB NEB SCH ×6 (03:20→23:34)
[2018-10-23] MEDS: IPRATROPIUM NEB FS 0.5 MG/2.5 ML AMPUL.NEB NEB SCH ×6 (03:20→23:34)
[2018-10-23 04:00] VITALS: BP 111/80
--- NOTE | 2018-10-23 07:00 | NUR ---
MS/RN OPENING NOTE Received report from pm nurse.Patient awake, A/O x 4, on room air. IV on LFA patent, intact, with no signs of infiltration. Patient ambulatory with steady gait. Patient educated on plan of care. bed is locked and in low position.call light in reach.srx2.will continue to monitor.
[2018-10-23 07:07] LABS: BASOPHILS # (AUTO) 0.1 /CMM (0.0-0.2); BASOPHILS % (AUTO) 2.4 % (0.0-2.0); EOSINOPHILS % (AUTO) 6.9 % (0.0-6.0); HEMATOCRIT 34 % (39-51); LYMPHOCYTES # (AUTO) 0.8 /CMM (0.8-4.8); LYMPHOCYTES % (AUTO) 14.8 % (20.0-44.0); MEAN CORPUSCULAR HGB CONC 32 g/dl (31.0-36.0); MEAN CORPUSCULAR VOLUME 98 fL (80-96); MONOCYTES # (AUTO) 0.7 /CMM (0.1-1.30); MONOCYTES % (AUTO) 12.3 % (2.0-12.0); NEUTROPHILS # (AUTO) 3.5 /CMM (1.8-8.9); NEUTROPHILS % (AUTO) 63.6 % (43.0-81.0); PLATELET COUNT (AUTO) 73 /CMM (150-450); RED BLOOD CELL COUNT(AUTO) 3.48 MIL/uL (4.5-6.0); WHITE BLOOD COUNT (AUTO) 5.5 K/uL (4.3-11.0)
[2018-10-23 07:24] LABS: ALBUMIN 2.9 g/dL (3.4-5.0); BILIRUBIN,TOTAL 1.2 mg/dL (0.2-1.0); CALCIUM, SERUM 8.9 mg/dL (8.5-10.1); CREATININE 6.3 mg/dL (0.6-1.3); MAGNESIUM 2.1 mg/dL (1.8-2.4); PHOSPHORUS 6.6 mg/dL (2.5-4.9); TOTAL PROTEIN, SERUM 7.3 g/dL (6.4-8.2)
[2018-10-23 07:30] VITALS: BP 93/57
[2018-10-23] MEDS: BLOOD SUGAR DIAGNOSTIC 1 EACH STRIP IN SCH ×4 (07:46→21:16)
[2018-10-23 08:50] LABS: EOSINOPHILS % (MANUAL) 8 % (0-4); LYMPHOCYTES % (MANUAL) 11 % (16-48); MONOCYTES % (MANUAL) 6 % (0-11.0); NEUTROPHILS % (MANUAL) 75 (42-76)
[2018-10-23] MEDS: Fluoxetine 10 mg capsule PO SCH (08:51)
[2018-10-23] MEDS: SEVELAMER CARBONATE 0.8 GM POWD.PACK PO SCH ×3 (08:51→18:13)
[2018-10-23] MEDS: AMIODARONE HCL 200 MG TABLET PO SCH (08:51)
[2018-10-23] MEDS: INSULIN NPH, HUMAN ISOPHANE 100 UNIT/ML VIAL SQ SCH ×2 (08:52→21:13)
[2018-10-23] MEDS: CARVEDILOL 3.125 MG TABLET PO SCH (08:52)
[2018-10-23 16:00] VITALS: BP 101/73
--- NOTE | 2018-10-23 18:52 | NUR ---
MS RN CLOSING NOTES PT RESTING ON SIDE OF BED, ASSISTED PT TO CALL DAUGHTER. PT HAD HD TODAY; TOLERATED WELL. IS ABLE TO USE BIPAP AT BEDSIDE WHEN GOING TO SLEEP. PT IS ORIENTED TO MACHINE. BED IN LOCKED/LOWEST POSITION. CALL LIGHT IN REACH. ALL NEEDS ATTENDED TO. WILL ENDORSE TO PM NURSE FOR DARREN.
--- NOTE | 2018-10-23 19:08 | NUR ---
MS RN OPENING NOTE REPORT GIVEN BEDSIDE. PATIENT A/O X 4, NO S.S OF DISTRESS. PATIENT CURRENTLY ON BIPAP MACHINE AT RX SETTINGS. PATIENT KNOWLEDGEABLE OF MACHINE USE. PATIENT HAS NO COMPLAINTS AT THIS TIME. GOALS FOR THE NIGHT ESTABLISHED. SAFETY MEASURES IN PLACE, BED LOWEST LOCKED POSITION, CALL LIGHT AT HAND. RN WILL CONTINUE TO MONITOR PATIENT.
[2018-10-23 20:00] VITALS: BP 92/67
[2018-10-23] MEDS: ACETAMINOPHEN 325 MG TABLET PO PRN (21:21)
--- NOTE | 2018-10-23 23:11 | NUR ---
RN NOTE OFFERED PATIENT SCD, PATIENT HAS HIGH VTE RISK OF 5. PATIENT REFUSED DEVICE. Addendum: 10/23/18 at 2315 by MEHRDAD DAMON RN PATIENT CALLED RN BACK TO ROOM. PATIENT ACCEPTS USING THE DEVICE WHILE SLEEPING.
--- NOTE | 2018-10-24 01:17 | NUR ---
MS RN NOTE PATIENT C/O TROUBLE SLEEPING AND REQUESTS FOR MEDICATION TO HELP. AMBIEN 5MG GIVEN ORDERED. PATIENT EDUCATED TO NOT AMBULATE WHILE TAKING THE MED DUE TO HIGH FALL RISK. PATIENT VERBALIZES UNDERSTANDING.
[2018-10-24] MEDS: ALBUTEROL FS 2.5 MG/0.5 ML VIAL.NEB NEB SCH ×6 (03:03→22:34)
[2018-10-24] MEDS: IPRATROPIUM NEB FS 0.5 MG/2.5 ML AMPUL.NEB NEB SCH ×6 (03:03→22:34)
[2018-10-24 04:00] VITALS: BP 91/59
--- NOTE | 2018-10-24 07:15 | NUR ---
MS/RN OPENING NOTE Received report from pm nurse.Patient awake, A/O x 4, . Saline lock on the LFA is patent, intact, with no signs of infiltration. Patient ambulatory with steady gait. Patient educated on plan of care. bed is locked and in low position.call light in reach.srx2.will continue to monitor.
--- NOTE | 2018-10-24 07:37 | NUR ---
RN MS NOTE NO ACUTE CHANGES THROUGHOUT SHIFT, ENDORSED POC TO AM FOR DARREN.
[2018-10-24] MEDS: BLOOD SUGAR DIAGNOSTIC 1 EACH STRIP IN SCH ×4 (07:41→21:35)
[2018-10-24 07:56] LABS: BASOPHILS # (AUTO) 0.1 /CMM (0.0-0.2); BASOPHILS % (AUTO) 2.2 % (0.0-2.0); EOSINOPHILS % (AUTO) 6.1 % (0.0-6.0); HEMATOCRIT 33 % (39-51); HEMOGLOBIN 10.6 g/dL (13.5-17.5); LYMPHOCYTES # (AUTO) 0.8 /CMM (0.8-4.8); LYMPHOCYTES % (AUTO) 14.5 % (20.0-44.0); MEAN CORPUSCULAR HGB CONC 32 g/dl (31.0-36.0); MEAN CORPUSCULAR VOLUME 98 fL (80-96); MONOCYTES # (AUTO) 0.6 /CMM (0.1-1.30); MONOCYTES % (AUTO) 11.7 % (2.0-12.0); NEUTROPHILS # (AUTO) 3.6 /CMM (1.8-8.9); NEUTROPHILS % (AUTO) 65.5 % (43.0-81.0); PLATELET COUNT (AUTO) 74 /CMM (150-450); RED BLOOD CELL COUNT(AUTO) 3.32 MIL/uL (4.5-6.0); WHITE BLOOD COUNT (AUTO) 5.5 K/uL (4.3-11.0)
[2018-10-24 08:00] VITALS: BP_SYST 95; BP_DIAS 64; BP_DIAS 69
[2018-10-24 08:31] LABS: CALCIUM, SERUM 8.9 mg/dL (8.5-10.1); CREATININE 6.1 mg/dL (0.6-1.3); POTASSIUM 4.7 mmol/L (3.5-5.1)
[2018-10-24 08:44] LABS: BAND % (MANUAL) 2 % (0.0-5.0); EOSINOPHILS % (MANUAL) 8 % (0-4); LYMPHOCYTES % (MANUAL) 16 % (16-48); MONOCYTES % (MANUAL) 10 % (0-11.0); NEUTROPHILS % (MANUAL) 64 (42-76)
[2018-10-24] MEDS: SEVELAMER CARBONATE 0.8 GM POWD.PACK PO SCH ×3 (09:23→17:20)
[2018-10-24] MEDS: AMIODARONE HCL 200 MG TABLET PO SCH (09:23)
[2018-10-24] MEDS: Fluoxetine 10 mg capsule PO SCH (09:27)
[2018-10-24] MEDS: INSULIN NPH, HUMAN ISOPHANE 100 UNIT/ML VIAL SQ SCH ×2 (09:37→21:34)
--- NOTE | 2018-10-24 12:00 | NUR ---
MS RN NOTE SEEN BY ,UPDATED ABOUT PATIENT CONDITION.NO SLIDING SCALE NECESSARY IF BS LEVEL BEING IN CONTROL.DIETARY RECOMMENDATION FOR RENAL HIGH DIABETIC DIET.NOTED AND CARRIED OUT.
[2018-10-24 16:00] VITALS: BP 92/61
--- NOTE | 2018-10-24 19:19 | NUR ---
MS RN NOTE REPORT GIVEN BEDSIDE, PATIENT HAS NO S/S OF DISTRESS. PATIENT DENIES CHEST PAIN/SOB/ AT THIS TIME. SAFETY MEASURES IN PLACE, SIDE RAILS UP X2, BED IN LOWEST LOCKED POSITION, GOALS FOR NIGHT DISCUSSED WITH PATIENT.
--- NOTE | 2018-10-24 19:31 | NUR ---
MS RN CLOSING NOTE Patient awake, A/O x 4, . Saline lock on the LFA is patent, intact, with no signs of infiltration. Patient ambulatory with steady gait. Patient educated on plan of care. bed is locked and in low position.call light in reach.srx2.family was at bedside answered all questions.
--- NOTE | 2018-10-24 19:32 | NUR ---
MS RN NOTE ENDORSED TO PM NURSE FOR DARREN.
[2018-10-24 20:14] VITALS: BP 91/64
[2018-10-24] MEDS: ACETAMINOPHEN 325 MG TABLET PO PRN (22:23)
--- NOTE | 2018-10-24 22:26 | NUR ---
MS RN NOTE PATIENT COMPLAINED OF HEADACHE, TYLENOL GIVEN ORDERED.
[2018-10-25] MEDS: ALBUTEROL FS 2.5 MG/0.5 ML VIAL.NEB NEB SCH ×4 (02:41→15:30)
[2018-10-25] MEDS: IPRATROPIUM NEB FS 0.5 MG/2.5 ML AMPUL.NEB NEB SCH ×4 (02:41→15:30)
[2018-10-25 04:00] VITALS: BP 96/61
[2018-10-25] MEDS: BLOOD SUGAR DIAGNOSTIC 1 EACH STRIP IN SCH ×2 (06:34→11:29)
--- NOTE | 2018-10-25 07:00 | NUR ---
MS TEJEDA OPENING NOTES RECEIVED PT SITTING ON BED.ALERT/ORIENTED X4.ON ROOM AIR,TOLERATING WELL.NO SOB AND ACUTE DISTRESS NOTED.IV LINE IS ON LEFT FA G18 AND HD CATH IS ON RIGHT CHEST,SITE IS CLEAN,DRY AND INTACT.NO INFILTRATION NOTED.SAFETY IS MAINTAINED AT ALL TIMES.CALL LIGHT IS WITHIN REACH.BED IS IN LOCKED .WILL CONTINUE TO MONITOR THE PT CLOSELY. Addendum: 10/25/18 at 0951 by NATALIIA TEJADA RN CLARIFIED THE ROOM AIR TO NASAL CANNULA 2L,TOLERATING WELL.
[2018-10-25 08:00] VITALS: BP 91/67
[2018-10-25] MEDS: INSULIN NPH, HUMAN ISOPHANE 100 UNIT/ML VIAL SQ SCH (08:02)
[2018-10-25 08:07] VITALS: BP 91/67
[2018-10-25] MEDS: SEVELAMER CARBONATE 0.8 GM POWD.PACK PO SCH ×2 (08:07→12:42)
[2018-10-25] MEDS: AMIODARONE HCL 200 MG TABLET PO SCH (08:07)
[2018-10-25] MEDS: Fluoxetine 10 mg capsule PO SCH (08:10)
--- NOTE | 2018-10-25 12:42 | NUR ---
MS RN NOTES PT IS ON DIALYSIS,RENVELA 0.8GM IS NOT ADMINISTERED.
--- NOTE | 2018-10-25 15:15 | NUR ---
MS ANESTHESIOLOGY FELLOW NOTES PT DISCHARGED TO HOME WITH THE DAUGHTER.ALL THE DISCHARGE MEDICATIONS AND FOLLOW UP APPOINTMENTS EXPLAINED TO THE PT,VERBALIZED UNDERSTOOD.IV LINE ON LEFT FA G20 IS REMOVED.NO BLEEDING NOTED.SKIN ASSESSMENT IS DONE AND PICTURE HAS TAKEN.VITAL SIGNS ARE CHECKED.HD HAS DONE,2.5L FLUID OUT.NO COMPLICATIONS NOTED.TOLERATED WELL ON ROOM AIR,NO SOB AND ACUTE DISTRESS NOTED.BELONG LIST SIGNED BY THE PT.AMBULATED TO THE PARKING LOT WITH THE DAUGHTER,NO COMPLICATIONS NOTED.
== END 2018-10-25 15:15 | disposition home health service (06) | DRG 291 ==
LOC: ER 13:22 → TELE1 14:33 → TELE-TD 15:21 → MEDSG1 10-20 15:23
PROVIDERS: ADMIT Student in an Organized Health Care Education/Training Program; ATTEND Family Medicine
PROC: 5A09457 Assistance with Respiratory Ventilation, 24-96 Consecutive Hours, Continuous Positive Airway Pressure (ICD-10-PCS; principal; 2018-10-19)
DX: I13.2 Hypertensive heart and chronic kidney disease with heart failure and with stage 5 chronic kidney disease, or end stage renal disease (principal); J96.01 Acute respiratory failure with hypoxia; N18.6 End stage renal disease; I50.23 Acute on chronic systolic (congestive) heart failure; E87.1 Hypo-osmolality and hyponatremia; E44.1 Mild protein-calorie malnutrition; Z99.2 Dependence on renal dialysis; E10.22 Type 1 diabetes mellitus with diabetic chronic kidney disease; E87.5 Hyperkalemia; E83.39 Other disorders of phosphorus metabolism; Z95.810 Presence of automatic (implantable) cardiac defibrillator; E78.5 Hyperlipidemia, unspecified; Z98.890 Other specified postprocedural states; Z79.4 Long term (current) use of insulin; Z79.899 Other long term (current) drug therapy; D69.6 Thrombocytopenia, unspecified; D63.8 Anemia in other chronic diseases classified elsewhere; E10.65 Type 1 diabetes mellitus with hyperglycemia; I05.9 Rheumatic mitral valve disease, unspecified; Z68.34 Body mass index [BMI] 34.0-34.9, adult; I25.5 Ischemic cardiomyopathy; G47.30 Sleep apnea, unspecified; E66.01 Morbid (severe) obesity due to excess calories
CPT/HCPCS: 36415; 36600; 71045-TC; 80048-TC; 80053-TC; 80076-TC; 82803-TC; 82962-TC; 83735-TC; 83880; 84100-TC; 84484-TC; 85025-TC; 87081-TC; 90935-TC; 94760-TC; 94799-TC; A6402; G0378; J1815